=== PATIENT | female | born 1980 | race Caucasian/White ===

== ENCOUNTER 2020-06-07 14:33 | Outpatient (REF) | payer BC, SELFPAY ==
[2020-06-07 16:11] LABS: MANUAL DIFF FLAG NO
[2020-06-07 16:16] LABS: Basophils Absolute Auto 0.1 X10*3/uL (0.0-0.2); Basophils Percent Auto 0.6 % (0-2); Eosinophils Absolute Auto 0.1 X10*3/uL (0.0-0.4); Eosinophils Percent Auto 1.4 % (0-4); Hematocrit 42.6 % (37-47); Hemoglobin 13.9 g/dl (12.0-16.0); Imm Gran Abs Auto 0.02 X10*3/uL (0.00-0.03); Imm Gran Pct Auto 0.2 % (0.0-0.4); Lymphocytes Absolute Auto 2.3 X10*3/uL (1.2-4.9); Lymphocytes Percent Auto 27.5 % (20-40); Mean Corpuscular HGB Conc 32.6 g/dl (31.0-35.0); Mean Corpuscular Hemoglobin 29.1 pg (27.0-33.0); Mean Corpuscular Volume 89.1 fL (80-98); Mean Platelet Volume 9.7 fL (9.4-12.3); Monocytes Absolute Auto 0.5 X10*3/uL (0.1-1.2); Monocytes Percent Auto 5.7 % (2-11); Neutrophils Absolute Auto 5.5 X10*3/uL (2.0-8.3); Neutrophils Percent Auto 64.6 % (45-73); Platelet Count 313 X10*3/uL (160-400); Red Blood Count 4.78 X10*6/uL (4.20-5.50); Red Cell Distribution Width 12.8 % (11.0-16.0); White Blood Count 8.5 X10*3/uL (4.8-10.8)
[2020-06-07 16:39] LABS: Anion Gap 11 (12-20); Blood Urea Nitrogen 13 mg/dL (9-16); Calcium 9.1 mg/dL (8.4-10.2); Carbon Dioxide 29 mmol/L (22-29); Chloride 104 mmol/L (96-108); Estimated Glomerular Filt Rate > 60; Glucose Fasting 88 mg/dL (60-99); Potassium 4.5 mmol/L (3.3-5.1); Sodium 139 mmol/L (135-145)
[2020-06-07 17:02] LABS: TSH reflex Free T4 1.43 uIU/mL (0.32-4.0)
== END 2020-06-07 14:34 | disposition home or self-care (01) ==
LOC: HO.HMGCLDS 14:33
PROVIDERS: PCP Internal Medicine; Visit Provider Internal Medicine
DX: R00.2 Palpitations (principal); I10 Essential (primary) hypertension
CPT/HCPCS: 36415; 80048; 84443; 85025

== ENCOUNTER → 2020-07-07 13:12 | Outpatient (REF) | payer BC, SELFPAY ==
--- NOTE | 2020-07-07 13:25 | ECG_ITS ---
Hook-up date: 2020-07-07 13:29:00 Duration: 43:16:00 Test Indications: PALPITATIONS Medications: 207613 QRS complexes * Ventricular ectopics which represent % of total QRS comp. 8 Supraventricular ectopics which represent <1 % of total QRS comp. * Paced QRS complexs which represent % of total QRS comp. VENTRICULAR ECTOPY * Isolated * Bigeminal Cycles * Couplets * Runs * Beats in Runs * Beats LONGEST at * BPM at :: -- * Beats FASTEST at * BPM at :: -- SUPRAVENTRICULAR ECTOPY 6 Isolated 1 Couplets 0 Runs 0 Beats in Runs * Beats LONGEST at * BPM at :: -- * Beats FASTEST at * BPM at :: -- HEART RATES 55 MIN at 21:51:10 2020-07-07 83 AVG 140 MAX at 13:30:51 2020-07-07 LONGEST RR 1.1280 secs at 00:35:34 2020-07-08 S-T LEVELS Channel 1 - 128 mm at 13:29:00 2020-07-07 - 128 mm at 13:29:00 2020-07-07 Channel 2 - 128 mm at 13:29:00 2020-07-07 - 128 mm at 13:29:00 2020-07-07 Channel 3 - 128 mm at 03:24:81 -- - 128 mm at 03:24:81 Underlying rhythm is sinus; Average ventricular rate 83/min; range 55-140/min; Very rate premature atrial contractions; No sustained arrhythmias; 'Flutters' in patient diary without any findings on holter. Referred By: Shira Mayes Overread By: CHEVY MCKEON
== END ==
LOC: HO.CARD 13:12
PROVIDERS: Visit Provider Internal Medicine
DX: R00.2 Palpitations (principal)
CPT/HCPCS: 93225; 93226

== ENCOUNTER 2020-11-01 09:21 | Outpatient (REF) | payer BC, SELFPAY ==
[2020-11-01 11:35] LABS: Cholesterol 166 mg/dL; Glucose Fasting 90 mg/dL (60-99); HDL Cholesterol 73 mg/dL; LDL Cholesterol Calculated 80 mg/dl; Triglycerides 67 mg/dL
[2020-11-01 11:57] LABS: Thyroid Stimulating Hormone 1.08 uIU/mL (0.32-4.0); Vitamin D 25-OH Total 37.3 ng/mL (>30)
[2020-11-03 09:41] LABS: Thyroid Peroxidase Antibodies 1 IU/mL (<9)
== END 2020-11-01 09:22 | disposition home or self-care (01) ==
LOC: HO.HMGCLDS 09:21
PROVIDERS: PCP Internal Medicine; Visit Provider Internal Medicine
DX: Z00.00 Encounter for general adult medical examination without abnormal findings (principal); N92.6 Irregular menstruation, unspecified
CPT/HCPCS: 36415; 80061; 82306; 82947; 84443; 86376

== ENCOUNTER 2021-01-12 09:01 | Outpatient (REF) | payer BC, SELFPAY ==
--- NOTE | ~2021-01-12 | MM_ITS ---
EXAMINATION: MM SCREENING DIGITAL BREAST TOMOSYNTHESIS, BILATERAL CLINICAL INFORMATION: Screening. Asymptomatic. Status post bilateral subpectoral saline breast implants. The lifetime risk of breast cancer based on the Tyrer-Cuzick Model is 7.7%. COMPARISON: Mammography: None TECHNIQUE: Digital mammography is performed in craniocaudal and mediolateral oblique views along with computer-aided detection (CAD). Digital breast tomosynthesis is performed in implant-displaced craniocaudal and implant-displaced mediolateral oblique views along with computer-aided detection (CAD). Synthesized 2D images are generated from the tomosynthesis. Trent implant displaced views performed. FINDINGS: There are scattered areas of fibroglandular density (ACR BI-RADS breast composition Category b). There are no significant masses, abnormal calcifications, or other abnormalities. MM/MM tomosynthesis screen imp BI IMPRESSION: No specific mammographic evidence to suggest malignancy. ASSESSMENT: BI-RADS 1: Negative RECOMMENDATION: Routine annual mammography screening. This patient's information was entered into a reminder system with a target due date for their next mammogram.
== END 2021-01-12 09:02 | disposition home or self-care (01) ==
LOC: HO.MAMMO 09:01
PROVIDERS: Visit Provider Internal Medicine
DX: Z12.31 Encounter for screening mammogram for malignant neoplasm of breast (principal)
CPT/HCPCS: 77063; 77067

== ENCOUNTER 2021-04-29 08:54 | Outpatient (REF) | payer OTHER, BC, SELFPAY ==
[2021-04-29 10:22] LABS: Binax Internal Control QC Valid; Binax Now Covid-19 Ag Negative (Negative)
== END 2021-04-29 08:55 | disposition home or self-care (01) ==
LOC: HO.LAB 08:54
PROVIDERS: Visit Provider Internal Medicine
DX: Z20.822 Contact with and (suspected) exposure to COVID-19 (principal)
CPT/HCPCS: 36415; C9803

== ENCOUNTER 2021-08-08 08:10 | Outpatient (REF) | payer OTHER, SELFPAY ==
[2021-08-08 11:18] LABS: MANUAL DIFF FLAG NO
[2021-08-08 11:23] LABS: Basophils Percent Auto 0.9 % (0-2); Eosinophils Absolute Auto 0.2 X10*3/uL (0.0-0.4); Eosinophils Percent Auto 5.3 % (0-4); Hematocrit 41.1 % (37.0-47.0); Imm Gran Abs Auto 0.01 X10*3/uL (0.00-0.03); Imm Gran Pct Auto 0.2 % (0.0-0.4); Lymphocytes Absolute Auto 1.3 X10*3/uL (1.2-4.9); Lymphocytes Percent Auto 29.4 % (20-40); Mean Corpuscular HGB Conc 31.6 g/dl (31.0-35.0); Mean Corpuscular Hemoglobin 28.6 pg (27.0-33.0); Mean Corpuscular Volume 90.5 fL (80.0-98.0); Mean Platelet Volume 10.5 fL (9.4-12.3); Monocytes Absolute Auto 0.4 X10*3/uL (0.1-1.2); Monocytes Percent Auto 8.7 % (2-11); Neutrophils Absolute Auto 2.4 x10*3/uL (2.0-8.3); Neutrophils Percent Auto 55.5 % (45-73); Platelet Count 308 X10*3/uL (160-400); Red Blood Count 4.54 X10*6/uL (4.20-5.50); Red Cell Distribution Width 12.8 % (11.0-16.0); White Blood Count 4.4 X10*3/uL (4.8-10.8)
[2021-08-08 11:57] LABS: Estimated Average Glucose 100 mg/dL; Hemoglobin A1c % 5.1 %
[2021-08-08 11:58] LABS: Alanine Aminotransferase 14 U/L (0-31); Alkaline Phosphatase 44 U/L (39-117); Anion Gap 10 (12-20); Aspartate Amino Transferase 18 U/L (5-31); Bilirubin Total 0.6 mg/dL (0.0-1.0); Blood Urea Nitrogen 13 mg/dL (9-16); Calcium 9.1 mg/dL (8.4-10.2); Carbon Dioxide 27 mmol/L (22-29); Chloride 106 mmol/L (96-108); Estimated Glomerular Filt Rate > 60; Glucose Fasting 95 mg/dL (60-99); Potassium 4.1 mmol/L (3.3-5.1); Sodium 139 mmol/L (135-145); Total Protein 6.4 g/dL (6.5-8.0)
[2021-08-08 12:00] LABS: Free T4 (Free Thyroxine) 1.05 ng/dL (0.71-1.85); TSH reflex Free T4 1.49 uIU/mL (0.32-4.0)
[2021-08-09 23:46] LABS: DHEA Sulfate 119 mcg/dL (15-205)
[2021-08-13 15:05] LABS: Progesterone 0.1 ng/mL
[2021-08-13 22:52] LABS: Estradiol Free 0.58 pg/mL; Estradiol, Ultrasensitive 38 pg/mL
[2021-08-14 03:02] LABS: Testosterone, Free 2.9 pg/mL (0.1-6.4); Testosterone, Total 29 ng/dL (2-45)
[2021-08-19 18:46] LABS: Cortisol, Free 0.52 mcg/dL
== END 2021-08-08 08:11 | disposition home or self-care (01) ==
LOC: HO.WFDLDS 08:10
PROVIDERS: Visit Provider Internal Medicine
DX: E03.9 Hypothyroidism, unspecified (principal); E66.9 Obesity, unspecified; N96 Recurrent pregnancy loss
CPT/HCPCS: 36415; 80053; 82530; 82627; 82670; 82681; 83036; 84144; 84402; 84403; 84439; 84443; 85025

== ENCOUNTER → 2021-08-16 08:45 | Outpatient (BNVA) | payer OTHER, SELFPAY | PROVIDERS: PCP Internal Medicine; Visit Provider Nurse Practitioner Family | DX: G47.19 Other hypersomnia (principal); R06.83 Snoring | CPT/HCPCS: 99202 ==

== ENCOUNTER 2021-08-18 14:37 | Outpatient (REF) | payer OTHER, SELFPAY ==
[2021-08-20 14:45] LABS: HPV mRNA E6/E7 rflx Not Detected (Not Detected)
== END 2021-08-18 14:38 | disposition home or self-care (01) ==
LOC: HO.LAB 14:37
PROVIDERS: PCP Internal Medicine; Visit Provider Advanced Practice Midwife
DX: Z01.411 Encounter for gynecological examination (general) (routine) with abnormal findings (principal); Z11.51 Encounter for screening for human papillomavirus (HPV); N92.6 Irregular menstruation, unspecified
CPT/HCPCS: 87624; 88142

== ENCOUNTER → 2021-12-05 13:22 | Outpatient (BNVA) | payer OTHER, SELFPAY | PROVIDERS: PCP Internal Medicine; Visit Provider Dietitian, Registered | DX: E66.9 Obesity, unspecified (principal); Z71.3 Dietary counseling and surveillance | CPT/HCPCS: 97802 ==

== ENCOUNTER 2022-02-14 09:13 | Outpatient (REF) | payer OTHER, SELFPAY ==
[2022-02-14 12:08] LABS: Influenza A PCR NEGATIVE (Negative); Influenza B PCR NEGATIVE (Negative); Resp Syncy Virus RNA Qual PCR NEGATIVE (Negative); SARS COV2 PCR INHOUSE NEGATIVE (Negative)
== END 2022-02-14 09:14 | disposition home or self-care (01) ==
LOC: HO.LAB 09:13
PROVIDERS: Visit Provider Hospitalist
DX: Z20.822 Contact with and (suspected) exposure to COVID-19 (principal); R05.9 Cough, unspecified
CPT/HCPCS: 0241U

== ENCOUNTER 2023-03-26 08:04 | Outpatient (REF) | payer OTHER, SELFPAY ==
--- NOTE | ~2023-03-26 | MM_ITS ---
EXAMINATION: MM SCREENING DIGITAL BREAST TOMOSYNTHESIS, BILATERAL CLINICAL INFORMATION: Screening. Asymptomatic. COMPARISON: Mammography: This study is compared with the prior mammogram from 2020. There are no other mammograms for comparison. TECHNIQUE: Digital mammography is performed in craniocaudal and mediolateral oblique views along with computer-aided detection (CAD). Digital breast tomosynthesis is performed in implant-displaced craniocaudal and implant-displaced mediolateral oblique views along with computer-aided detection (CAD). Synthesized 2D images are generated from the tomosynthesis. FINDINGS: The breasts are heterogeneously dense, which may obscure small masses (ACR BI-RADS breast composition Category c). There are bilateral, mammographically intact saline breast implants. There are no significant masses, abnormal calcifications, or other abnormalities. MM/MM tomosynthesis screen imp BI IMPRESSION: There are no significant changes from prior study. ASSESSMENT: BI-RADS BI-RADS 1 - Negative RECOMMENDATION: Routine annual mammography screening. 1 year F/U This patient's information was entered into a reminder system with a target due date for their next mammogram.
== END 2023-03-26 08:05 | disposition home or self-care (01) ==
LOC: HO.MAMMO 08:04
PROVIDERS: PCP Internal Medicine; Visit Provider Internal Medicine
DX: Z12.31 Encounter for screening mammogram for malignant neoplasm of breast (principal)
CPT/HCPCS: 77063; 77067

== ENCOUNTER → 2023-03-26 08:15 | Outpatient (BNV) | payer OTHER, SELFPAY | PROVIDERS: PCP Internal Medicine; Visit Provider Radiology Diagnostic Radiology | DX: Z12.31 Encounter for screening mammogram for malignant neoplasm of breast (principal) | CPT/HCPCS: 77063; 77067 ==

== ENCOUNTER 2023-04-11 08:23 | Outpatient (AMB) | payer OTHER, SELFPAY ==
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
[2023-04-11 08:33] VITALS: BP 124/76; PULSE 80; RESP 13; TEMP 36.4; O2SAT 99; BMI 26.2
== END 2023-04-11 09:08 | disposition home or self-care (01) ==
PROVIDERS: PCP Internal Medicine; Visit Provider Nurse Practitioner Family
DX: Z00.00 Encounter for general adult medical examination without abnormal findings (principal); M25.561 Pain in right knee; M25.562 Pain in left knee; G89.29 Other chronic pain; J06.9 Acute upper respiratory infection, unspecified
CPT/HCPCS: 99396

== ENCOUNTER 2023-08-14 08:17 | Outpatient (REF) | payer OTHER, SELFPAY ==
[2023-08-14 14:20] LABS: CT PCR NOT DETECTED (Not Detect.); NG PCR NOT DETECTED (Not Detect.)
[2023-08-15 13:25] LABS: BV Int Neg Control Negative (Negative); BV Int Pos Control Positive (Positive)
== END 2023-08-14 08:18 | disposition home or self-care (01) ==
LOC: HO.LAB 08:17
PROVIDERS: PCP Nurse Practitioner Family; Visit Provider Advanced Practice Midwife
DX: Z20.2 Contact with and (suspected) exposure to infections with a predominantly sexual mode of transmission (principal)
CPT/HCPCS: 0353U; 87480; 87510; 87660

== ENCOUNTER 2023-08-14 08:17 | Outpatient (AMB) | payer OTHER, SELFPAY ==
--- NOTE | 2023-08-14 08:18 | MHC.OFFVIS ---
Vital Signs 08/14/23 08:20 Height 5 ft 2 in Weight 154 lb BMI 28.2 BP 106/66 Intake Visit Reasons: Annual/ control consult Intake Note: wants to discuss BC options Type Disk Quality Control Supervisor: Type Disk Quality Control Supervisor Present (Trena) Allergies No Known Allergies Allergy (Verified 08/14/23 08:20) Is last menstrual period known: Yes Last menstrual period: 08/06/23 HPI Comments Details: She is a premenopausal woman presenting for annual examination. Doing well with no concerns. She tries to eat healthy and stays active with exercise. Regular monthly menses, q 27d. Currently is sexually active, new partner interested in control, had the Mirena IUD in the past. She denies vaginal itching and irritation. STI screening offered; she accepts, declines bloodwork as it is done at work yearly. Denies family history of breast or ovarian. FH colon cancer. Last pap smear 2021, negative. Mammogram: 2022, BI-RADS 1. [facility] Medical History Obesity History of recurrent miscarriages Excessive daytime sleepiness Irregular menses Intermittent palpitations Surgical History History of surgery Family History Mother Medical history non-contributory Father HTN (hypertension) Maternal Grandfather Colon cancer Daughter No problems noted. Daughter No problems noted. 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 Cognitive needs: No Hearing needs: No Vision needs: No Female Reproductive History Menstrual Age of Menarche: 15 Date of last menstrual period: 08/06/23 control method: condoms Total pregnancies: 5 Full term: 2 Number of Living Children: 2 Date of last pap smear: 08/18/21 (neg pap and hpv) Date of Mammogram: 03/26/23 (Birad 1) Review of Systems Const All systems reviewed & are unremarkable except as noted in HPI and below Reports as per HPI Eyes Reports no additional complaints ENT Reports no additional complaints Card Reports no additional complaints Resp Reports no additional complaints GI Reports as per HPI and Reports no additional complaints Reports as per HPI Musc Reports no additional complaints Skin/Breast Reports as per HPI Neuro Reports no additional complaints Psych Reports no additional complaints Endo Reports no additional complaints Cedric/Lymph Reports no additional complaints Aller/Immun Reports no additional complaints Physical Exam Vital Signs: Last Vital Signs BP 106/66 08/14/23 08:20 BMI result Body Mass Index 28.2 Const General: cooperative, healthy appearing, no acute distress, well developed and alert Orientation/consciousness: patient oriented x3 HEENT Head: Yes normal to inspection Eyes General: appearance normal, both eyes and all related structures Neck Neck: Yes normal visual inspection Thyroid: Thyroid normal Chest Chest palpation & inspection: normal inspection of the chest and other (no puckering, dimpling, peau de orange, retraction, discharge, masses) Breast/axilla inspection: normal inspection of the breasts Breast/axilla palpation: normal palpation of the breasts Resp Effort & Inspection: normal respiratory effort GI Inspection: Yes normal to inspection Palpation (GI): Soft to palpation Rectal Exam - Female: deferred General: Yes bladder normal to palpation External Female Exam: normal external appearance and normal appearance of the urethra Speculum Exam - Vagina: normal appearance of the vagina, normal palpation and normal vaginal discharge Speculum Exam - Cervix: normal appearance of the cervix and normal palpation Bimanual exam- vagina & uterus: normal bimanual exam, normal palpation, uterine size normal, bladder normal to palpation, normal palpation and non-tender Bimanual Exam- Adnexa, other: no masses Skin General skin exam: no rashes or lesions noted Rashes: no rashes Neuro General: patient oriented x3 Cognition (Neuro): normal cognition Extrem General: Yes normal to inspection Psych Attitude: cooperative Thought process: Normal thought process present Assessment & Plan Assessment & Plan (1) Encounter for well woman exam with routine gynecological exam: Code(s): Z01.419 - Encounter for gynecological examination (general) (routine) without abnormal findings Plan Discussed: Current recommendations for pap smears per ASCCP guidelines. Breast awareness and periodic breast exams. control options, plans Mirena IUD with next menses. Advised to take Motrin 600 mg with food 1 hour before her insertion time. Maintain a healthy lifestyle including a well balanced diet and routine exercise. Use condoms for STI and prevention. Mammogram yearly. Colonoscopy >45, or at risk sooner. Patient verbalizes understanding and agrees to the plan of care. She was given opportunity to ask questions and all questions were answered to the best of my ability. RTO in one year for annual third mate examination. This note is constructed using voice recognition software. While every effort has been made to ensure accuracy, signal integrity engineer errors may have been included. Orders: Orders Bacterial Vaginosis Panel Today Z20.2 - Contact with and (suspected) exposure to infections with a predominantly sexual mode of transmission CT NG by PCR Today Z20.2 - Contact with and (suspected) exposure to infections with a predominantly sexual mode of transmission
[2023-08-14 08:20] VITALS: BP 106/66; BMI 28.2
== END 2023-08-14 09:56 | disposition home or self-care (01) ==
PROVIDERS: PCP Nurse Practitioner Family; Visit Provider Advanced Practice Midwife
DX: Z01.419 Encounter for gynecological examination (general) (routine) without abnormal findings (principal)
CPT/HCPCS: 99396

== ENCOUNTER 2023-08-14 08:37 | Outpatient (REF) | payer OTHER, SELFPAY | END 2023-08-14 08:38 | disposition home or self-care (01) | LOC: HO.LNP 08:37 | PROVIDERS: Visit Provider Advanced Practice Midwife | DX: Z13.89 Encounter for screening for other disorder (principal) ==

== ENCOUNTER 2023-10-02 08:12 | Outpatient (AMB) | payer OTHER, SELFPAY ==
[2023-10-02 08:22] VITALS: BP 112/80; BMI 27.4
--- NOTE | 2023-10-02 08:22 | MHC.OFFVIS ---
Vital Signs 10/02/23 08:22 Height 5 ft 2 in Weight 150 lb BMI 27.4 BP 112/80 Intake Visit Reasons: Mirena IUD insertion Industrial X Ray Operator Required: No Information Interpreted: non-clinical & clinical Mobile Home Mechanic: Mobile Home Mechanic Present (Enrique) Allergies No Known Allergies Allergy (Verified 10/02/23 08:41) Post menopausal: No Patient : No HPI Comments Details: Patient is here for Mirena IUD insertion. She denies any risk to . [facility] Medical History Obesity History of recurrent miscarriages Excessive daytime sleepiness Irregular menses Intermittent palpitations Surgical History History of surgery Family History Mother Medical history non-contributory Father HTN (hypertension) Maternal Grandfather Colon cancer Daughter No problems noted. Daughter No problems noted. 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 Cognitive needs: No Hearing needs: No Vision needs: No Female Reproductive History Menstrual Age of Menarche: 15 control method: none and progestin IUCD (Mirena inserted 10/02/2023) Date of last pap smear: 08/19/21 (negative) Review of Systems Const All systems reviewed & are unremarkable except as noted in HPI and below Physical Exam Vital Signs: Last Vital Signs BP 112/80 10/02/23 08:22 BMI result Body Mass Index 27.4 Const General: cooperative, healthy appearing and no acute distress Orientation/consciousness: patient oriented x3 GI Inspection: Yes normal to inspection Palpation (GI): Soft to palpation and Other GI palpation findings present (Nontender) Rectal Exam - Female: visual inspection normal General: Yes bladder normal to palpation External Female Exam: normal appearance of the urethra Speculum Exam - Vagina: normal appearance of the vagina, normal palpation and normal vaginal discharge Speculum Exam - Cervix: normal appearance of the cervix and normal palpation Bimanual exam- vagina & uterus: normal bimanual exam, normal palpation, uterine size normal, bladder normal to palpation, normal palpation, uterine shape normal and non-tender Bimanual Exam- Adnexa, other: normal adnexae Neuro General: patient oriented x3 Office Procedures IUD Insert/Removal Details 85400-ATT Insertion Procedure code (CPT) selection complete Contraception Insert/Removal Details Details: The patient is here today for a Mirena IUD insertion. She was counseled on the side effects including: menstrual cycle changes, pain, infection, bleeding, or expulsion. Risks of injury to the vagina, cervix, uterus, tubes, ovaries, bowel, bladder, and any adjacent tissue, resulting in nerve damage, scarring, and pain. Risks complications for the procedure that may require other test including ultrasounds, Xray, CT or MRI scan, surgery, anesthesia, blood transfusion. A urine test was completed and was negative. She was consented for the IUD insertion and has signed the consent form. All questions were answered. IUD Insertion: The patient was placed in the dorsal lithotomy position and a sterile speculum was inserted. The procedure was completed under aseptic technique. The cervix was cleansed with a Betadine solution x 3 swabs. A single toothed tenaculum was applied to the cervix for stabilization, and the uterus was sounded to 8 cm. The device was inserted and released with a gentle motion. Bleeding from the tenaculum sites and the procedure were minimal. The strings were trimmed to 3cm. All of the equipment was removed and the bimanual was normal, no tip was palpable at the cervical os. The patient tolerated the procedure well and left the office in good condition. Post IUD Insertion Care: There may be some post insertion bleeding for several days that is usually light and can turn to a light brown or pink in color. Mild cramping may occur. Nothing in the vagina including: tampons, douching or intimacy for several days. You may take an over the counter mild analgesia like Tylenol or Advil (if no allergies), per the manufacturers recommendations on dosing and frequency. Follow the directions completely. Call the office if any: fever (over 100.4), flu like symptoms, abdominal pain, worsening cramping not resolved with over the counter medications, foul smelling vaginal odor, signs of infected appearing discharge, or heavy bleeding. Use a condom for a back up method if indicated for 7 days. Always use a condom for STI prevention; IUD's are not protective against STD's. Return to the office in 4-6 weeks for IUD recheck. This note is constructed using voice recognition software. While every effort has been made to ensure accuracy, braze operator errors may have been included. 13170 - Insertion Office Meds Mirena 21 mcg/24 hours (8 yrs) 52 mg intrauterine device Performing Provider: Yvonne Antunez CNM Performing Location: [facility] Administered by: CAROL Smyth on 10/02/23 08:59 Dose Route Admin Location Dispensed Lot Number Expiration Date [facility] Crude Unit Operator [address] [facility]-OBGYN 1 device [id number] 12/20/25 [id number] [place] [facility] Results AMB Test Urine AMB Test Urine Negative Last Edit by CAROL Smyth on 10/02/23 08:43 Results Reviewed Results Reviewed: Laboratory Last Values [facility] Negative 10/02/23 08:43 Assessment & Plan Assessment & Plan (1) Encounter for insertion of mirena IUD: Code(s): Z30.430 - Encounter for insertion of intrauterine contraceptive device Category: Medical Plan See procedure note. Orders: Orders AMB IUD Insertion/Removal - Practice Supplied Today Z30.430 - Encounter for insertion of intrauterine contraceptive device AMB HCG Urine Test Today Z32.02 - Encounter for test, result negative Coding Level of Care Code Procedure Only Diagnoses Encounter for insertion of mirena IUD Z30.430 CPT Codes Details - CPT: 77169-KZX Insertion ([id number]) Details - Contraception: 28537 - Insertion ([id number])
== END 2023-10-02 09:04 | disposition home or self-care (01) ==
PROVIDERS: PCP Nurse Practitioner Family; Visit Provider Advanced Practice Midwife
DX: Z30.430 Encounter for insertion of intrauterine contraceptive device (principal); Z32.02 Encounter for pregnancy test, result negative
CPT/HCPCS: 58300

== ENCOUNTER → 2023-10-02 08:12 | Outpatient (BNVA) | payer OTHER, SELFPAY | PROVIDERS: PCP Nurse Practitioner Family; Visit Provider Advanced Practice Midwife | DX: Z30.430 Encounter for insertion of intrauterine contraceptive device (principal); Z32.02 Encounter for pregnancy test, result negative | CPT/HCPCS: 58300; 81025; J7298 ==

== ENCOUNTER 2023-11-13 11:20 | Outpatient (AMB) | payer OTHER, SELFPAY ==
--- NOTE | 2023-11-13 11:20 | MHC.OFFVIS ---
Vital Signs 11/13/23 11:21 Height 5 ft 2 in Weight 150 lb BMI 27.4 BP 110/74 Intake Visit Reasons: 4-6 IUD check Steward/Stewardess Tourist Class: Steward/Stewardess Tourist Class Present (Trena) Allergies No Known Allergies Allergy (Verified 11/13/23 11:21) Is last menstrual period known: Yes Last menstrual period: 10/22/23 HPI Comments Details: Patient is here today for a follow up status post IUD insertion check. She reports her last menstrual period was a bit earlier than usual and she has noticed facial acne breakout. [facility] Medical History Obesity History of recurrent miscarriages Excessive daytime sleepiness Irregular menses Intermittent palpitations Surgical History History of surgery Family History Mother Medical history non-contributory Father HTN (hypertension) Maternal Grandfather Colon cancer Daughter No problems noted. Daughter No problems noted. 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 Cognitive needs: No Hearing needs: No Vision needs: No Female Reproductive History Menstrual Age of Menarche: 15 Date of last menstrual period: 10/22/23 control method: progestin IUCD (Mirena 10/02/23) Review of Systems Const All systems reviewed & are unremarkable except as noted in HPI and below Physical Exam Vital Signs: Last Vital Signs BP 110/74 11/13/23 11:21 BMI result Body Mass Index 27.4 Const General: cooperative, healthy appearing and no acute distress Orientation/consciousness: patient oriented x3 GI Inspection: Yes normal to inspection Palpation (GI): Soft to palpation and Other GI palpation findings present (Nontender) Rectal Exam - Female: visual inspection normal General: Yes bladder normal to palpation External Female Exam: normal appearance of the urethra Speculum Exam - Vagina: normal appearance of the vagina, normal palpation and normal vaginal discharge Speculum Exam - Cervix: normal appearance of the cervix, normal palpation and Other cervical findings present (IUD strings at the os) Bimanual exam- vagina & uterus: normal bimanual exam, normal palpation, uterine size normal, bladder normal to palpation, normal palpation, uterine shape normal and non-tender Bimanual Exam- Adnexa, other: normal adnexae Neuro General: patient oriented x3 Assessment & Plan Assessment & Plan (1) IUD surveillance: Code(s): Z30.431 - Encounter for routine checking of intrauterine contraceptive device Plan Discussed: Monitoring menstrual cycles, normal transition after IUD insertion may expect random bleeding. Call if there is any heavy prolonged bleeding, pelvic pain or other concerns. Has a director women annual scheduled for July of 2024. All of her questions and concerns were addressed to the best of my ability and shared decision making. She is agreeable to the plan of care. This note is constructed using voice recognition software. While every effort has been made to ensure accuracy, ware cleaner errors may have been included. Coding Level of Care Code Est Pt Level 2 (96143) Diagnoses IUD surveillance Z30.431
[2023-11-13 11:21] VITALS: BP 110/74; BMI 27.4
== END 2023-11-13 12:04 | disposition home or self-care (01) ==
PROVIDERS: PCP Nurse Practitioner Family; Visit Provider Advanced Practice Midwife
DX: Z30.431 Encounter for routine checking of intrauterine contraceptive device (principal)
CPT/HCPCS: 99212

== ENCOUNTER → 2023-11-13 11:20 | Outpatient (BNVA) | payer OTHER, SELFPAY | PROVIDERS: PCP Nurse Practitioner Family; Visit Provider Advanced Practice Midwife | DX: Z30.431 Encounter for routine checking of intrauterine contraceptive device (principal) | CPT/HCPCS: 99212 ==

== ENCOUNTER 2024-02-12 08:04 | Outpatient (AMB) | payer OTHER, SELFPAY ==
--- NOTE | 2024-02-12 08:18 | AM.OFFWIN_ITS ---
Intake Vital Signs 02/12/24 08:21 Height 5 ft 2 in Weight 135 lb 2 oz BMI 24.7 BP 102/66 Blood Pressure Location Lt brachial Position Sitting Respiration 13 Pulse 71 Pulse Source Pulse Oximeter Pulse Oximetry (%) 100 Oxygen Delivery Method Room Air Intake Visit Reasons: Left ear is blocked Intake Note: Patient complaining of not hearing from her left ear x 1 week Patient Tobacco Use Status: Never used Tobacco Allergies No Known Allergies Allergy (Verified 02/12/24 08:36) Medication List - Last Reconciled 02/12/24 by Meggan Trotter, CORE DRILLER- multivitamin 1 tab PO DAILY Do you need a note to return to daycare/school/sports/work: No HPI HPI Comments History of Present Illness Details 43-year-old female here today with compl aints of plugged sensation in the left ear. Reports that she was sick with a URI a few weeks ago. These symptoms resolved however she initially felt some plugging of bilat ears, her right ear symptoms would come and go. Overall the right ear symptoms are resolved however she continues with the left ear feeling blocked, reports that she has pain in the area when she bends over, mild nasal congestion, everything sounds echoed. She is taking daily Zyrtec and Flonase. She has also tried self insufflation which seems to make the right ear feel plugged and not help at all with the left ear Exam: Awake alert NAD Sclera and conjunctiva clear bilat Nares patent, turbinates pale and edematous on the left, left maxillary sinus tenderness with palpation TM intact clear on the right, intact, bulging, erythematous on the left MMM, pharynx WNL Plan Treat for acute bacterial sinusitis with Augmentin. Advised to take with food. Continue Flonase. Continue allergy medication. Advised that the sensation in the left ear can continue for a few weeks however her symptoms should greatly improved status post antibiotics. Educated on reasons to return to the office and or seek additional care This note is constructed using voice recognition software. While every effort has been made to ensure accuracy in technology architect, still errors may have been included Sometimes, these errors may affect the content or meaning of the given sentence . [facility] Medical History Obesity History of recurrent miscarriages Excessive daytime sleepiness Irregular menses Intermittent palpitations Surgical History History of surgery Family History Mother Medical history non-contributory Father HTN (hypertension) Maternal Grandfather Colon cancer Daughter No problems noted. Daughter No problems noted. 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 (2) Dysfunction of left eustachian tube: Code(s): H69.92 - Unspecified Eustachian tube disorder, left ear Plan: . Medications: New amoxicillin-pot clavulanate 875-125 mg 1 tab PO BID 7 days 14 tabs 0RF fluticasone propionate 50 mcg/actuation administer into each nostril 1 spray intranasal BID PRN 16 grams 11RF allergy symptoms Patient Instructions: What Is It? Sinuses are air-filled spaces behind the bones of the upper face: between the eyes and behind the forehead, nose and cheeks. The lining of the sinuses are made up of cells with tiny hairs on their surfaces called cilia. Other cells in the lining produce mucus. The mucus traps germs and pollutants and the cilia push the mucus out through narrow sinus openings into the nose. When the sinuses become inflamed or infected, the mucus thickens and clogs the openings to one or more sinuses. Fluid builds up inside the sinuses causing increased pressure. Also bacteria can become trapped, multiply and infect the lining. This is sinusitis. Prevention There are some measures you can take to decrease your risk of developing sinusitis. If you smoke cigarettes, you should quit. The smoke can irritate nasal passageways and increase the likelihood of infection. Nasal allergies can trigger sinus infections, too. By identifying the allergen (the substance causing the allergic reaction) and avoiding it, you can help prevent sinusitis. If you have congestion from a cold or allergies, the following may help to reduce the risk of developing sinusitis: Drink lots of water. This thins nasal secretions and keeps mucous membranes moist. Use steam to soothe nasal passages. Breathe deeply while standing in a hot shower, or inhale the vapor from a basin filled with hot water while holding a towel over your head. Avoid blowing your nose with great force, which can push bacteria into the sinuses. Some doctors advise periodic home nasal washings to clear secretions. This may help prevent, and also treat, sinus infections. Treatment Many sinus infections improve without treatment. However, several medications may speed recovery and reduce the chance that an infection will become chronic. Decongestants - Congestion often triggers sinus infections, and decongestants can open the sinuses and allow them to drain. Several are available: Pseudoephedrine (Sudafed) is available without prescription, alone or in combination with other medications in multi-symptom cold and sinus remedies. Pseudoephedrine can cause insomnia, racing pulse and jitteriness. Do not use if you have high blood pressure or a heart condition. Phenylephrine (such as Sudafed PE) is an alternative oqxu-cet-glyclij oral decongestant. If you take products containing oral phenylephrine, check with the pharmacist to be certain there is no interaction with other medications you take. Oxymetazoline (AfHannah abarca and others) and phenylephrine (Jose Antonio-Synephrine and others) are found in nasal sprays. They are effective and may be less likely to cause the side effects seen with pseudoephedrine. However, using a nasal decongestant for more than three days can cause worse symptoms when you stop the medication. This is called the rebound effect. Antihistamines - These medications help to relieve the symptoms of nasal allergies that lead to inflammation and infections. However, some doctors advise against using antihistamines during a sinus infection because they can cause excessive drying and slow the drainage process. Xkya-ldi-cgvyncp antihistamines include diphenhydramine (Benadryl and others), chlorpheniramine (Chlor-Trimeton and others) and loratadine (Claritin). Fexofenadine (Erin) and cetrizine (Zyrtec) are available by prescription. Nasal steroids - Anti-inflammatory sprays such as mometasone (Nasonex) and fluticasone (Flonase), both available by prescription, reduce swelling of nasal membranes. Like antihistamines, nasal steroids can be most useful for those who have nasal allergies. Nasal steroids tend to produce less drying than antihistamines. Unlike nasal decongestants, nasal steroids can be used for prolonged periods. Saline nasal sprays - These salt-water sprays are safe to use and can provide some relief by adding moisture to the nasal passages, thinning mucus secretions and helping to flush out any bacteria that may be present. Pain relievers - Acetaminophen (Tylenol), ibuprofen (Advil, Motrin and others) or naproxen (Aleve) can be taken sinus pain. Antibiotics - Your doctor may prescribe an antibiotic if he or she suspects that a bacterial infection is causing your sinusitis. If you start taking an antibiotic, complete the entire course so that the infection is completely killed off. Not all cases of sinusitis require antibiotic treatment: Talk with your doctor about whether an antibiotic is right for you. Keep in mind that antibiotics can cause side effects, such as allergic reactions, rash and diarrhea. In addition, overusing antibiotics eventually leads to the spread of bacteria that no longer can be killed by the most commonly prescribed antibiotics. When To Call A Professional Contact a doctor if you experience facial pain along with a headache and fever, cold symptoms that last longer than seven to 10 days, or persistent green discharge from the nose. If your symptoms don't improve within a week of beginning treatment, call your doctor. Call sooner if symptoms are getting worse. If you have repeated bouts of acute sinusitis, you may have allergies or another treatable cause of sinus congestion. Ask your doctor for advice. Coding Level of Care Code Est Pt Level 3 (33177) Diagnoses Acute bacterial sinusitis J01.90; B96.89 Dysfunction of left eustachian tube H69.92
[2024-02-12 08:21] VITALS: BP 102/66; PULSE 71; RESP 13; O2SAT 100; BMI 24.7
== END 2024-02-12 09:56 | disposition home or self-care (01) ==
PROVIDERS: PCP Nurse Practitioner Family; Visit Provider Nurse Practitioner Family
DX: J01.90 Acute sinusitis, unspecified (principal); B96.89 Other specified bacterial agents as the cause of diseases classified elsewhere; H69.92 Unspecified Eustachian tube disorder, left ear

== ENCOUNTER → 2024-02-12 08:04 | Outpatient (BNVA) | payer OTHER, SELFPAY | PROVIDERS: PCP Nurse Practitioner Family; Visit Provider Nurse Practitioner Family | DX: J01.90 Acute sinusitis, unspecified (principal); B96.89 Other specified bacterial agents as the cause of diseases classified elsewhere; H69.92 Unspecified Eustachian tube disorder, left ear | CPT/HCPCS: 99212 ==

== ENCOUNTER 2024-08-19 08:50 | Outpatient (AMB) | payer OTHER, SELFPAY ==
[2024-08-19 08:51] VITALS: BP 116/74; BMI 27.4
--- NOTE | 2024-08-19 08:51 | A.OFFVIS_ITS ---
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 Currently is sexually active. She denies vaginal itching and irritation. STI screening offered; she declined. She tries to eat healthy and stays active with exercise. Denies family history of breast, ovarian cancer. Family history colon cancer. Last pap smear 2021, negative. Mammogram: 2022. [facility] Medical History IUD surveillance IUD (intrauterine device) in place Obesity History of recurrent miscarriages Excessive daytime sleepiness Irregular menses Intermittent palpitations Surgical History History of surgery Family History Mother Medical history non-contributory Father HTN (hypertension) Maternal Grandfather Colon cancer Daughter No problems noted. Daughter No problems noted. 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 Cognitive needs: No Hearing needs: No Vision needs: No Female Reproductive History Menstrual Age of Menarche: 15 Date of last menstrual period: 08/19/24 control method: progestin IUCD (Mirena 10/02/23) Total pregnancies: 5 Full term: 2 Number of Living Children: 2 Date of last pap smear: 08/18/21 (neg pap and hpv) Date of Mammogram: 03/26/23 (Birad 1) Review of Systems Const All systems reviewed & are unremarkable except as noted in HPI and below Reports as per HPI Eyes Reports no additional complaints ENT Reports no additional complaints Card Reports no additional complaints Resp Reports no additional complaints GI Reports as per HPI and Reports no additional complaints Reports as per HPI Musc Reports no additional complaints Skin/Breast Reports as per HPI Neuro Reports no additional complaints Psych Reports no additional complaints Endo Reports no additional complaints Cedric/Lymph Reports no additional complaints Aller/Immun Reports no additional complaints Physical Exam Vital Signs: Last Vital Signs BP 116/74 08/19/24 08:51 BMI result Body Mass Index 27.4 Const General: cooperative, healthy appearing, no acute distress, well developed and alert Orientation/consciousness: patient oriented x3 HEENT Head: Yes normal to inspection Eyes General: appearance normal, both eyes and all related structures Neck Neck: Yes normal visual inspection Thyroid: Thyroid normal Chest Other: Breast reconstruction scarring Chest palpation & inspection: normal inspection of the chest and other (no puckering, dimpling, peau de orange, retraction, discharge, masses) Breast/axilla inspection: normal inspection of the breasts Breast/axilla palpation: normal palpation of the breasts Resp Effort & Inspection: normal respiratory effort GI Inspection: Yes normal to inspection and Yes scar Palpation (GI): Soft to palpation Rectal Exam - Female: deferred General: Yes bladder normal to palpation External Female Exam: normal external appearance and normal appearance of the urethra Speculum Exam - Vagina: normal appearance of the vagina, normal palpation, normal vaginal discharge and vaginal bleeding Speculum Exam - Cervix: normal appearance of the cervix and normal palpation Bimanual exam- vagina & uterus: normal bimanual exam, normal palpation, uterine size normal, bladder normal to palpation, normal palpation, non-tender (Firm) and other (IUD strings at the os) Bimanual Exam- Adnexa, other: no masses OB/external & speculum: vaginal bleeding Skin General skin exam: no rashes or lesions noted Rashes: no rashes Neuro General: patient oriented x3 Cognition (Neuro): normal cognition Extrem General: Yes normal to inspection Psych Attitude: cooperative Thought process: Normal thought process present Assessment & Plan Assessment & Plan (1) Encounter for well woman exam with routine gynecological exam: Code(s): Z01.419 - Encounter for gynecological examination (general) (routine) without abnormal findings Category: Medical Plan Discussed: Current recommendations for pap smears per ASCCP guidelines. Breast awareness and periodic breast exams. Mammogram yearly. Maintain a healthy lifestyle including a well balanced diet and routine exercise. Plan ultrasound to check IUD position, uterine structures, pelvic anatomy. Patient verbalizes understanding and agrees to the plan of care. She was given opportunity to ask questions and all questions were answered to the best of my ability. RTO in one year for annual lawyer real estate examination. This note is constructed using voice recognition software. While every effort has been made to ensure accuracy, coal hauler operator errors may have been included. Orders: Orders US pelvic and transvaginal Today Z30.431 - Encounter for routine checking of intrauterine contraceptive device MM tomosynthesis screen imp BI Today Z12.31 - Encounter for screening mammogram for malignant neoplasm of breast Coding Level of Care Code Est Pt Prev Care 40-64y(21169) Diagnoses Encounter for well woman exam with routine gynecological exam Z01.419
--- OUTSIDE RECORDS SUMMARY | 2024-08-19 09:19 | XMS_ITS | Encounter Summary ---
Author Organization [facility] Address [address] [place] [address] Care Team Providers Care Benefits Director Name Role Phone Unavailable Primary Care Provider Unavailabl e Prior Encounters Date Type Department Care Team Description 05/12/2019 Converted 13x Documents [facility] [address], [address] [place] [address] <No scans attached> 05/12/2019 Converted CPS Chart Documents [facility] [address], [address] [place] [phone] <No scans attached> 05/12/2019 Converted CPS Chart Documents [facility] [address], [address] [place] [phone] <No scans attached> 05/12/2019 Converted 13x Documents [facility] [address], [address] [place] [address] <No scans attached> Plan of Treatment Not on file Procedures Procedure Name Priority Date/Time Associated Diagnosis Comments VARITYPIST CONSULTATION Routine 2013 1:00 AM [facility] ORAL HYGIENE INSTRUCTIONS Routine 2013 1:00 AM [facility] TOPICAL APPLICATION OF FLUORIDE VARNISH Routine 03/27/2014 1:00 AM [facility] PROPHYLAXIS - ADULT Routine 03/27/2014 1 :00 AM [facility] COMPREHENSIVE ORAL EVALUATION - NEW OR ESTABLISHED PATIENT Routine 03/25/2014 1:00 AM [facility] PANORAMIC RADIOGRAPHIC IMAGE Routine 03/25/2014 1:00 AM [facility] INTRAORAL - COMPREHENSIVE SERIES OF RADIOGRAPHIC IMAGES Routine 03/25/2014 1:00 AM [facility] INTRAORAL PHOTO Routine 03/25/2014 1:00 AM [facility] INTRAORAL PHOTO Routine 03/25/2014 1:00 AM [facility] INTRAORAL PHOTO Routine 03/25/2014 1:00 AM [facility] INTRAORAL PHOTO Routine 03/25/2014 1:00 AM [facility] 13 MOD COMPOSITE FILLING Routine 014 1:00 AM [facility] 14 DO COMPOSITE FILLING Routine 03/25/20 14 1:00 AM [facility] 15 O COMPOSITE FILLING Routine 4 1:00 AM [facility] Visit Diagnoses Not on file
--- OUTSIDE RECORDS SUMMARY | 2024-08-19 09:19 | XMS_ITS | Clinical Summary ---
Author Organization [facility] Address [address] [place] [address] Care Team Providers Care Case Management Manager Name Role Phone Unavailable Primary Care Provider Unavailabl e Social History Tobacco Use Types Packs/Day Years Used Date Smoking Tobacco: Never Assessed Comments Unknown Sex and Gender Information Value Date Recorded Sex Assigned at Not on file Legal Sex Female 2:42 PM PST Gender Identity Not on file Sexual Orientation Not on file Plan of Treatment Not on file
--- OUTSIDE RECORDS SUMMARY | 2024-08-19 09:20 | XMS_ITS | Continuity of Care Document ---
Author Name DOD-PA Organization DOD-[facility] Care Team Providers Care Department Director Name Role Phone [facility] Unavailable Unavailable Problems Combined list of problems from Department of Defense and Veterans Affairs facilities. It does not include entries that were removed or entered in error. Problem Status Onset Date Problem Type Date of Resolution Comments Source INJURY CAUSED BY ANIMAL NONVENOMOUS INSECT BITE Inactive Condition INJURY CAUSED B Y ANIMAL NONVENOMOUS INSECT BITE [facility] CONJUNCTIVITIS ADENOVIRAL Inactive Condition CONJUNCTIVITIS ADENOVIRAL DoD visit for: services physical pre-deployment Active Condition DoD Patient Counseling Medical Management Individual Patient Active Condition DoD Gynecologic Services Intrauterine Device (IUD) Reinsertion Active Condition [facility] Gynecologic Services Contraceptive General Counseling Active Condition DoD control method - intrauterine device (IUD) Active Condition [facility] TENOSYNOVITIS - TRIGGER FINGER (ACQUIRED) Active Condition DoD 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 [facility] ASTIGMATISM - REGULAR Active Condition DoD difficulty swallowing with food sticking in the middle chest Active Condition DoD POSTCOITAL BLEEDING Active Condition [facility] Gynecologic Services Intrauterine Device (IUD) Checking Inactive Condition [facility] ROUTINE PELVIC EXAM Inactive Condition [facility] Outpatient Physician Consultation Active Condition DoD KNEE SPRAIN Inactive Condition [facility] aircraft accident - 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 ( 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) Inactive Condition DoD KNEE SPRAIN LEFT Inactive Condition [facility] KNEE SPRAIN RIGHT Inactive Condition [facility] joint pain, localized in the knee Active Condition DoD cough Active Condition DoD nausea Inactive Condition DoD feeling congested in the chest Inactive Condition [facility] Patient Counseling: Active Condition [facility] Laboratory Studies Inactive Condition Do D Gynecologic Services Intrauterine Device (IUD) Inactive Condition [facility] visit for: screening exam for human papillomavirus (HPV) Inactive Condition DoD PHARYNGITIS Inactive Condition DoD INFECTIOUS DISEASE - VIRAL Inactive Condition DoD BACTERIAL VAGINOSIS Inactive Condition DoD vaginal odor Active Condition DoD COMMON COLD Inactive Condition Pt. inst ructed on medications, and RTC if worse, better 3 days, well one week. DoD ESOPHAGEAL REFLUX Active Condition stable DoD visit for: occupational health / fitness exam Inactive Condition 2796 completed [facility] REFRACTIVE ERROR - MYOPIA Active Condition DoD visit for: administrative purpose Inactive Condition DoD UPPER RESPIRATORY INFECTION Inactive Condition DoD OBESITY Active Condition DoD current diet needs improvement Active Condition DoD visit for: services physical Active Condition DoD VIRAL SYNDROME Inactive Condition VIRAL SYNDROME DoD abdominal pain Inactive Condition see above DoD CHEST PAIN Inactive Condition post oper ative - pt was advised by operating surgeon regarding f/u recommendations - will try naprosyn instead of motrin, pt advised vicodin and NSAIDs can be taken together if needed but hopefully she will not need the narcotics much longer - again deferred ongoing pain issues to the operating surgeon accept trial of naprosyn and profile DoD SINUSITIS ACUTE FRONTAL Inactive Condition rx as below, aggressive decongestion, supportive, f/u fever, new sx, or ftr 14d DoD EUSTACHIAN TUBE DYSFUNCTION Inactive Condition DoD PHARYNGITIS ACUTE Inactive Condition wendy norman infectious given LAD and sick contact - however would have thought it would begin to improve in 7-10 days - possible mono though certainly not classic in presentation - could do trial of claritin and sudafed for ETD/allergies - f/u if sx's persist DoD visit for: contraceptive surveillance pill Active Condition DoD abdominal pain in the central upper belly (epigastric) Inactive Condition DoD Abdomen Tenderness Direct Epigastric Inactive Condition DoD NICOTINE DEPENDENCE Active Condition DoD BENIGN SKIN NEOPLASM SUBCUTANEOUS LIPOMA Active Condition inflamed DoD Inquiry And Counseling: Contraceptive Practices Inactive Condition DoD visit for: screening exam for malignant neoplasm cervix Inactive Condition DoD ROUTINE GYNECOLOGICAL EXAM WITH CERVICAL PAP SMEAR Inactive Condition DoD CEREBRAL CONTUSION - WITH CONCUSSION Active Condition DoD OTITIS MEDIA Inactive Condition DoD ALLERGIC RHINITIS Inactive Condition Ad elba/ Tylenol as needed.May take Sudafed every 6 hours if needed.Increase fluids. DoD Immunizations Combined list of available immunizations from the Department of Defense and Veterans Affairs facilities. Immunization Series Date Given Administered By Site Reaction Lot Number CVX Code Drug Customer Success Intern Status Comments Source influenza virus vaccine, inactivated 2023 DINH Princeul devaughn, right (delt oid) [id number] 140 [employer] complet ed influenza virus vaccine, inactivat ed 02/19/24 Given [id number] MDG COVID Vaccine Pfizer 2021 [id number] PFIZER complet ed COVID Vaccine Pfizer 05/23/21 Given Ambulat ory Pharmac y SARS-COV-2 (COVID-19) vaccine, mRNA, spike protein, LNP, preservative free, 30 mcg/0.3mL dose 1 2021 [id number] Pfizer, Inc (PFR) complet ed SARS-COV- 2 (COVID-19 ) vaccine, mRNA, spike protein, LNP, preservat brennon free, 30 mcg/0.3mL dose DoD influenza, injectable, quadrivalent 2020 [id number] 158 Glax[employer] id complet ed influenza , injectabl e, quadrival ent 02/06/21 Given Ambulat ory Pharmac y influenza, injectable, quadrivalent, contains preservative 9 2020 [id number] 158 [facility] (SKB) complet ed influenza , injectabl e, quadrival ent, contains preservat brennon DoD COVID Vaccine Moderna 2020 [id number] complet ed COVID Vaccine Moderna 08/05/20 Given Ambulat ory Pharmac y SARS-COV-2 (COVID-19) vaccine, mRNA, spike protein, LNP, preservative free, 100 mcg or 50 mcg dose 2 2020 [id number] 207 Moderna [employer] (MOD) complet ed SARS-COV- 2 (COVID-19 ) vaccine, mRNA, spike protein, LNP, preservat brennon free, 100 mcg or 50 mcg dose DoD COVID Vaccine Moderna 2020 [id number] complet ed COVID Vaccine Moderna 07/04/20 Given Ambulat ory Pharmac y SARS-COV-2 (COVID-19) vaccine, mRNA, spike protein, LNP, preservative free, 100 mcg or 50 mcg dose 1 2020 [id number] 207 Moderna [employer] (MOD) complet ed SARS-COV- 2 (COVID-19 ) vaccine, mRNA, spike protein, LNP, preservat brennon free, 100 mcg or 50 mcg dose DoD influenza, injectable, quadrivalent- pf 2019 [id number] 150 Seq[employer] complet ed influenza , injectabl e, quadrival ent-pf 03/07/20 Given Ambulat ory Pharmac y Influenza, injectable, quadrivalent, preservative free 1 2019 [id number] 150 Se[employer] (SEQ) complet ed Influenza , injectabl e, quadrival ent, preservat brennon free DoD influenza, seasonal, injectable 2018 [id number] 141 [employer] complet ed influenza , seasonal, injectabl e 03/11/19 Given Ambulat ory Pharmac y Influenza, seasonal, injectable 1 2018 [id number] 141 [employer] (SEQ) complet ed Influenza , seasonal, injectabl e DoD influenza, seasonal, injectable 2017 [id number] 141 sanofi pasteur complet ed influenza , seasonal, injectabl e 01/22/18 Given Ambulat ory Pharmac y Influenza, seasonal, injectable 1 2017 [id number] 141 Sanofi Pasteur (PMC) complet ed Influenza , seasonal, injectabl e DoD influenza, seasonal, injectable 2016 [id number] 141 sanofi pasteur complet ed influenza , seasonal, injectabl e 04/03/17 Given Ambulat ory Pharmac y Influenza, seasonal, injectable 1 2016 [id number] 141 Sanofi Pasteur (PMC) complet ed Influenza , seasonal, injectabl e DoD tetanus, diphtheria, acellular pertu is 2016 [id number] 115 sanofi pasteur complet ed tetanus, diphtheri a, acellular pertussis 06/25/16 Given Ambulat ory Pharmac y tetanus toxoid, reduced diphtheria toxoid, and acellular pertu is vaccine, adsorbed 3 2016 [id number] 115 Sanofi Pasteur ([facility]) complet ed tetanus toxoid, reduced diphtheri a toxoid, and acellular pertussis vaccine, adsorbed DoD influenza, seasonal, injectable-pf 2015 [id number] 140 Se[employer]irus complet ed influenza , seasonal, injectabl e-pf 02/24/16 Given Ambulat ory Pharmac y Influenza, seasonal, injectable, preservative free 18 2015 [id number] 140 Seqirus (SEQ) comple t ed Influenza , seasonal, injectabl e, preservat brennon free DoD Human Papillomaviru s 9-valent vaccine 2015 [id number] 165 Merck & Company Inc complet ed Human Papilloma virus 9-valent vaccine 09/25/15 Given Ambulat ory Pharmac y Human Papillomaviru s 9-valent vaccine 3 2015 [id number] 165 Merck (MSD) complet ed Human Papilloma virus 9-valent vaccine DoD influenza, live, intranasal,qu adrivalent 2014 [id number] [facility] influenza , live, intranasa l,quadriv alent 03/01/15 Given Ambulat ory Pharmac y influenza, live, intranasal, quadrivalent 17 2014 [id number] 149 [employer]ggCart[employer], [employer]. (MED) complet ed influenza , live, intranasa l, quadrival ent DoD influenza, live, intranasal,qu adrivalent 2013 CK 149 Medimmune Inc comple t ed influenza , live, intranasa l,quadriv alent 02/21/14 Given Ambulat ory Pharmac y influenza, live, intranasal, quadrivalent 17 2013 CK 149 MedIProcessUnity, Inc. (MED) complet ed influenza , live, intranasa l, quadrival ent DoD measles/mumps /rubella virus vaccine 2013 [id number] 03 Merck & Company Inc complet ed measles/m umps/rube lla virus vaccine 12/05/13 Given Ambulat ory Pharmac y measles, mumps and rubella virus vaccine 1 2013 [id number] 03 Merck (MSD) complet ed measles, mumps and rubella virus vaccine DoD varicella virus vaccine 0 2013 21 () Not Given varicella virus vaccine DoD hepatitis B vaccine, unspecified formulation 0 2013 45 () Not Given hepatitis B vaccine, unspecifi ed formulati on DoD yellow fever vaccine 2013 [id number] 37 sanofi pasteur complet ed yellow fever vaccine 04/24/13 Given Ambulat ory Pharmac y yellow fever vaccine 0 2013 [id number] 37 Sanofi Pasteur (PMC) complet ed yellow fever vaccine DoD typhoid Vi capsular polysaccharid e vac 2012 [id number] 101 sanofi pasteur complet ed typhoid Vi capsular polysacch aride vac 02/05/13 Given Ambulat ory Pharmac y meningococcal A,C,Y,W-135 (MCV4P) 2012 [id number] 114 sanofi pasteur complet ed meningoco ccal A,C,Y,W-1 35 (MCV4P) 02/05/13 Given Ambulat ory Pharmac y typhoid Vi capsular polysaccharid e vaccine 4 2012 [id number] 101 Sanofi Pasteur (PMC) complet ed typhoid Vi capsular polysacch aride vaccine DoD meningococcal polysaccharid e (groups A, C, Y and W-135) diphtheria toxoid conjugate vaccine (MCV4P) 3 2012 [id number] 114 Sanofi Pasteur (PMC) complet ed meningoco ccal polysacch aride (groups A, C, Y and W-135) diphtheri a toxoid conjugate vaccine (MCV4P) DoD influenza, live, intranasal,qu adrivalent 2012 [id number] 149 Medimmune Inc comple t ed influenza , live, intranasa l,quadriv alent 01/25/13 Given Ambulat ory Pharmac y influenza, live, intranasal, quadrivalent 16 2012 [id number] 149 MedImmune, Inc. (MED) complet ed influenza , live, intranasa l, quadrival ent DoD influenza virus vaccine, live 2011 [id number] 111 Medimmune Inc comple t ed influenza virus vaccine, live 02/03/12 Given Ambulat ory Pharmac y influenza virus vaccine, live, attenuated, for intranasal use 1 2011 [id number] 111 MedImmune, Inc. (MED) complet ed influenza virus vaccine, live, attenuate d, for intranasa l use DoD influenza virus vaccine, live 2010 [id number] 111 Medimmune Inc comple t ed influenza virus vaccine, live 03/06/11 Given Ambulat ory Pharmac y influenza virus vaccine, live, attenuated, for intranasal use 1 2010 [id number] 111 MedImmune, Inc. (MED) complet ed influenza virus vaccine, live, attenuate d, for intranasa l use [facility] tuberculin purified protein derivative 2009 [id number] 96 sanofi pasteur complet ed tuberculi n purified protein derivativ e 02/16/10 Given Ambulat ory Pharmac y influenza virus vaccine, live 2009 [id number] 111 Medimmune Inc comple t ed influenza virus vaccine, live 02/16/10 Given Ambulat ory Pharmac y influenza virus vaccine, live, attenuated, for intranasal use 1 2009 [id number] 111 MedImmune, Inc. (MED) complet ed influenza virus vaccine, live, attenuate d, for intranasa l use [facility] Novel influenza-H1N 1-09, injectable 2009 [id number] 1A 127 Novartis [employer] complet ed Novel influenza -C4F5-59, injectabl e 05/09/09 Given Ambulat ory Pharmac y anthrax vaccine 2009 [id number] 24 [employer] complet ed anthrax vaccine 05/09/09 Given Ambulat ory Pharmac y anthrax vaccine 2 2009 [id number] 24 [employer]gent [employer] ([facility]) complet ed anthrax vaccine DoD Novel influenza-H1N 1-09, injectable 1 2009 [id number] 1A 127 Novartis Opez. (NOV) complet ed Novel influenza -S0O8-02, injectabl e DoD vaccinia (smallpox) vaccine 2008 VV04-00 3A 75 [employer] complet ed vaccinia (smallpox ) vaccine 04/06/09 Given Ambulat ory Pharmac y vaccinia (smallpox) vaccine 1 2008 VV04-00 3A 75 [facility] complet ed vaccinia (smallpox ) vaccine DoD typhoid Vi capsular polysaccharid e vac 2008 [id number] 101 sanofi pasteur complet ed typhoid Vi capsular polysacch aride vac 03/29/09 Given Ambulat ory Pharmac y typhoid Vi capsular polysaccharid e vaccine 1 2008 [id number] 101 Sanofi Pasteur ([facility]) complet ed typhoid Vi capsular polysacch aride vaccine DoD anthrax vaccine 2008 [id number] 24 [employer] complet ed anthrax vaccine 03/17/09 Given Ambulat ory Pharmac y influenza virus vaccine,split 2008 [id number] 15 sanofi pasteur complet ed influenza virus vaccine,s plit 03/17/09 Given Ambulat ory Pharmac y influenza virus vaccine, split virus (incl. purified surface antigen)-reti red CODE 1 2008 [id number] 15 Sanofi Pasteur ([facility]) complet ed influenza virus vaccine, split virus (incl. purified surface antigen)- retired CODE DoD anthrax vaccine 1 2008 [id number] 24 [employer] ([facility]) complet ed anthrax vaccine DoD influenza virus vaccine, live 2007 [id number] 111 [employer] comple t ed influenza virus vaccine, live 05/01/07 Given Ambulat ory Pharmac y influenza virus vaccine, live, attenuated, for intranasal use 1 2007 [id number] 111 [employer] (MED) complet ed influenza virus vaccine, live, attenuate d, for intranasa l use DoD Human Papillomaviru s,quadrivalen t(HPV4) 2006 [id number] 62 Merck & Company [employer] complet ed Human Papilloma virus,yvonne drivalent (HPV4) 10/26/06 Given Ambulat ory Pharmac y human papilloma virus vaccine, quadrivalent 1 2006 [id number] 62 Merck (MSD) complet ed human papilloma virus vaccine, quadrival ent DoD Human Papillomaviru s,quadrivalen t(HPV4) 2006 [id number] 62 [employer] & [employer] Inc complet ed Human Papilloma virus,yvonne drivalent (HPV4) 08/14/06 Given Ambulat ory Pharmac y human papilloma virus vaccine, quadrivalent 1 2006 [id number] 62 Merck (MSD) complet ed human papilloma virus vaccine, quadrival ent DoD influenza virus vaccine, live 2005 [id number] 111 [employer] [facility] comple t ed influenza virus vaccine, live 01/19/06 Given Ambulat ory Pharmac y influenza virus vaccine, live, attenuated, for intranasal use 1 2005 [id number] 111 [employer] (MED) complet ed influenza virus vaccine, live, attenuate d, for intranasa l use DoD tetanus, diphtheria, acellular pertu is 2005 [id number] 115 sanofi pasteur complet ed tetanus, diphtheri a, acellular pertussis 01/11/06 Given Ambulat ory Pharmac y hepatitis B adult vaccine 2005 [id number] 43 GlaxoSmithKli ne complet ed hepatitis B adult vaccine 01/11/06 Given Ambulat ory Pharmac y hepatitis B vaccine, adult dosage 3 2005 [id number] 43 [facility] (SKB) complet ed hepatitis B vaccine, adult dosage DoD tetanus toxoid, reduced diphtheria toxoid, and acellular pertu is vaccine, adsorbed 1 2005 [id number] 115 Sanofi Pasteur (PMC) complet ed tetanus toxoid, reduced diphtheri a toxoid, and acellular pertussis vaccine, adsorbed DoD hepatitis B adult vaccine 2005 [id number] 43 GlaxoSmithKli ne complet ed hepatitis B adult vaccine 07/05/05 Given Ambulat ory Pharmac y hepatitis B vaccine, adult dosage 2 2005 [id number] 43 [employer] (SKB) complet ed hepatitis B vaccine, adult dosage DoD influenza virus vaccine,split 2004 [id number] 15 sanofi pasteur complet ed influenza virus vaccine,s plit 03/09/05 Given Ambulat ory Pharmac y influenza virus vaccine, whole virus 2004 [id number] 16 sanofi pasteur complet ed influenza virus vaccine, whole virus 03/09/05 Given Ambulat ory Pharmac y influenza virus vaccine, split virus (incl. purified surface antigen)-reti red CODE 1 2004 [id number] 15 Sanofi Pasteur ([facility]) complet ed influenza virus vaccine, split virus (incl. purified surface antigen)- retired CODE DoD influenza virus vaccine, whole virus 1 2004 [id number] 16 Sanofi Pasteur ([facility]) complet ed influenza virus vaccine, whole virus DoD hepatitis B adult vaccine 2004 [id number] 43 GlaxoSmithKli ne complet ed hepatitis B adult vaccine 03/07/05 Given Ambulat ory Pharmac y varicella virus vaccine 0 2004 21 () Not Given varicella virus vaccine DoD hepatitis B vaccine, adult dosage 1 2004 [id number] [id number] 43 [employer]line (SKB) complet ed hepatitis B vaccine, adult dosage DoD tuberculin purified protein derivative 2004 (L) [id number] 96 sanofi pasteur complet ed tuberculi n purified protein derivativ e 02/20/05 Given Ambulat ory Pharmac y tuberculin purified protein derivative 2004 [id number] 96 [facility] complet ed tuberculi n purified protein derivativ e 09/23/04 Given Ambulat ory Pharmac y influenza virus vaccine,split 2003 [id number] 15 sanofi pasteur complet ed influenza virus vaccine,s plit 03/24/04 Given Ambulat ory Pharmac y influenza virus vaccine, split virus (incl. purified surface antigen)-reti red CODE 0 2003 [id number] 15 Sanofi Pasteur ([facility]MC) complet ed influenza virus vaccine, split virus (incl. purified surface antigen)- retired CODE DoD typhoid vaccine, parenteral 2003 [id number] 41 sanofi pasteur complet ed typhoid vaccine, parentera l 06/16/03 Given Ambulat ory Pharmac y typhoid vaccine, parenteral, other than acetone-kille d, dried 0 2003 [id number] 41 Sanofi Pasteur ([facility]) complet ed typhoid vaccine, parentera l, other than acetone-k illed, dried DoD yellow fever vaccine 2003 [id number] 37 [facility] yellow fever vaccine 05/07/03 Given Ambulat ory Pharmac y meningococcal polysaccharid e (MPSV4) 2003 [id number] 32 [facility] meningoco ccal polysacch aride (MPSV4) 05/07/03 Given Ambulat ory Pharmac y meningococcal polysaccharid e vaccine (MPSV4) 0 2003 [id number] 32 [place] (CON) complet ed meningoco ccal polysacch aride vaccine (MPSV4) DoD yellow fever vaccine 0 2003 [id number] 37 [place] (CON) complet ed yellow fever vaccine DoD influenza virus vaccine, whole virus 2002 [id number] 16 sanofi pasteur complet ed influenza virus vaccine, whole virus 03/18/03 Given Ambulat ory Pharmac y influenza virus vaccine, whole virus 0 2002 [id number] 16 Sanofi Pasteur ([facility]) complet ed influenza virus vaccine, whole virus DoD tuberculin purified protein derivative 2002 [id number] 96 [facility] complet ed tuberculi n purified protein derivativ e 06/24/02 Given Ambulat ory Pharmac y influenza virus vaccine,split 2002 15 complet ed influenza virus vaccine,s plit 05/02/02 Given Ambulat ory Pharmac y influenza virus vaccine, whole virus 2002 16 complet ed influenza virus vaccine, whole virus 05/02/02 Given Ambulat ory Pharmac y influenza virus vaccine, split virus (incl. purified surface antigen)-reti red CODE 1 2002 15 () complet ed influenza virus vaccine, split virus (incl. purified surface antigen)- retired CODE DoD influenza virus vaccine, whole virus 0 2002 16 () complet ed influenza virus vaccine, whole virus DoD typhoid Vi capsular polysaccharid e vac 2001 101 complet ed typhoid Vi capsular polysacch aride vac 07/02/01 Given Ambulat ory Pharmac y tuberculin purified protein derivative 2001 96 complet ed tuberculi n purified protein derivativ e 07/02/01 Given Ambulat ory Pharmac y typhoid Vi capsular polysaccharid e vaccine 0 2001 101 () complet ed typhoid Vi capsular polysacch aride vaccine DoD influenza virus vaccine, whole virus 2000 [id number] 16 Merck & Company Inc complet ed influenza virus vaccine, whole virus 03/11/01 Given Ambulat ory Pharmac y influenza virus vaccine, whole virus 0 2000 [id number] 16 Merck (MSD) complet ed influenza virus vaccine, whole virus DoD influenza virus vaccine, whole virus [id number] [facility] complet ed influenza virus vaccine, whole virus 05/28/00 Given Ambulat ory Pharmac y influenza virus vaccine, whole virus 0 2000 [id number] 16 [facility] ([facility]) complet ed influenza virus vaccine, whole virus DoD influenza virus vaccine, whole virus 1998 [id number] 16 [facility] complet ed influenza virus vaccine, whole virus 03/14/99 Given Ambulat ory Pharmac y influenza virus vaccine, whole virus 0 1998 [id number] 16 [facility] (CON) complet ed influenza virus vaccine, whole virus DoD hepatitis A adult vaccine 1998 [id number] 52 Merck & Company Inc complet ed hepatitis A adult vaccine 11/02/98 Given Ambulat ory Pharmac y hepatitis A vaccine, adult dosage 2 1998 [id number] 52 Merck (MSD) complet ed hepatitis A vaccine, adult dosage DoD hepatitis A adult vaccine 1998 [id number] 52 GlaxoSmithKli id complet ed hepatitis A adult vaccine 05/07/98 Given Ambulat ory Pharmac y poliovirus vaccine, live, oral 1998 [id number] 02 [employer] [facility] complet ed polioviru s vaccine, live, oral 05/07/98 Given Ambulat ory Pharmac y trivalent poliovirus vaccine, live, oral 0 1998 [id number] 02 [employer] (YAZ) comple t ed trivalent polioviru s vaccine, live, oral DoD measles, mumps and rubella virus vaccine 0 1998 03 () Not Given measles, mumps and rubella virus vaccine DoD hepatitis A vaccine, adult dosage 1 1998 [id number] [address] [place] [address] (SKB) complet ed hepatitis A vaccine, adult dosage DoD meningococcal polysaccharid e (MPSV4) [id number] 32 [facility] complet ed meningoco ccal polysacch aride (MPSV4) 04/30/98 Given Ambulat ory Pharmac y tuberculin purified protein derivative 1998 96 complet ed tuberculi n purified protein derivativ e 04/30/98 Given Ambulat ory Pharmac y influenza virus vaccine, whole virus [id number] 16 [facility] complet ed influenza virus vaccine, whole virus 04/30/98 Given Ambulat ory Pharmac y tetanus-dipht h toxoids (Td) adult/adol [id number] [id number] 09 [facility] complet ed tetanus-d iphth toxoids (Td) adult/ado l 04/30/98 Given Ambulat ory Pharmac y tetanus and diphtheria toxoids, adsorbed, preservative free, for adult use (2 Lf of tetanus toxoid and 2 Lf of diphtheria toxoid) 0 [id number] 09 [facility] (CON) complet ed tetanus and diphtheri a toxoids, adsorbed, preservat brennon free, for adult use (2 Lf of tetanus toxoid and 2 Lf of diphtheri a toxoid) DoD influenza virus vaccine, whole virus 0 [id number] 16 [facility] ([place]) complet ed influenza virus vaccine, whole virus DoD meningococcal polysaccharid e vaccine (MPSV4) 0 [id number] [id number] 32 [facility] (CON) complet ed meningoco ccal polysacch aride vaccine (MPSV4) DoD Results Combined list of recent chemistry, hematology and other laboratory results from Department of Defense and Veterans Affairs, ranging from 15 months to all on record, depending upon the facility. Order Name Results Value Reference Range Date Interpretation Specimen Comments Source Infectiou s Disease HIV-1/O/2 Non-Reac tive 1 (07/05/23 9:56 AM) 07/04 N Interpretiv e Data: INTERPRETAT ION: This method is a screening procedure for the detection of HIV p24 Antigen and Antibodies to HIV-1, including Group O, and/or HIV-2. NON-REACTIV E: HIV-1 antigen and HIV-1 / HIV-2 antibodies were not detected. No laboratory evidence of HIV infection. A negative test result does not exclude the possibility of exposure to or infection with HIV. HIV antibodies and/or p24 antigen may be undetectabl e in some stages of the infection and in some clinical conditions. If acute HIV infection is suspected, consider submitting another specimen to a reference laboratory for HIV-1 RNA. SCREEN REACTIVE - CONFIRMATIO N TO FOLLOW: Possible presence of HIV-1antibo dies, HIV-2 antibodies and/or HIV-1 p24 antigen. Specimen will reflex to the confirmatio n testing that fulfills the Center for Disease Control and Prevention' s HIV diagnostic algorithm. Refer to [facility] Lab Guide for additional information : https://[employer]. [facility]/ [email or web address]/kx5/EPIL ab/Pages/la b_guide.asp x Testing performed by Td gibbs. 5600A-U Exercise the [employer] Miscellan eous Sendouts Repository Sample Received (07/05/23 9:56 AM) 07/04 N 5600A-U docBeatSACartMomo EPILAB Encounters Combined list of: 1) Encounters from Department of Veterans Affairs facilities going backup to the last 18 months, not all VA inpatient encounters are included; 2) Encounters from the Department of Defense facilities going backup to 280 months. Location Location Details Encounter Type Encounter Number Reason For Visit Attending Provider ADM Date DC Date Status Disposition Source [facility] TO [facility] FROM OTHER THAN ER OR [facility] [id number] 03/05 RETURNED TO [facility] [employer] OUTPATIENT [id number] sinus problem s RACHEL JACOBO 11/29 Released w/o Limitations [employer] [employer]([facility]) OUTPATIENT [id number] sore throat NOEMI JEWELL 12/30 Released w/o Limitations [employer]([facility]) [employer]([facility]ag [facility]) OUTPATIENT [id number] ANSHU WEBER 03/06 Sick at Home/Quarter s [employer]([facility] ag[facility]) [employer]([facility]) OUTPATIENT [id number] headach e GERARD CHIANG 06/30 Released w/o Limitations [employer](E ag[facility]) [employer]([facility]) OUTPATIENT [id number] ANNUAL PAP SHARMILA WALKER A.H. 07/17 Released w/o Limitations [employer]([facility]) [employer]([facility]) OUTPATIENT [id number] lump on back getting bigger, painful * LEXIS AHUJA 08/23 Released w/o Limitations [employer]([facility] ag[facility]) [employer]([facility]) OUTPATIENT [id number] stomach pain and headach e for 2 days HIWOT PATIÑO 08/28 Released w/o Limitations [employer]) OUTPATIENT [id number] refill of agathaSHARMILA Toro A.H. 10/02 Released w/o Limitations [employer]([facility]) [employer]([facility]) OUTPATIENT [id number] sore throat x 1.5 weeks LEXIS AHUJA 11/21 Released w/o Limitations [employer](E ag[facility]) [employer]([facility]) OUTPATIENT [id number] SINUS AND COUGH ROGE KRUGER 02/15 Released w/o Limitations [employer](E ag[facility]) [employer]([facility]) OUTPATIENT [id number] FUP AFTER ELECTIV E SURGERY OFF BASE* LEXIS AHUJA 04/10 Released with Work/Duty Limitations [employer]([facility] ag[facility]) [employer]([facility]) OUTPATIENT [id number] headach e/nause BONNY Bagley 05/01 Sick at Home/Quarter s [employer]([facility]) [employer]([facility]ag [facility]) OUTPATIENT [id number] DAMON RONDON 05/22 Released w/o Limitations [employer]([facility] ag[facility]) [employer]([facility]) OUTPATIENT [id number] sinus infecti on GERARD CHIANG W 06/20 Released w/o Limitations [employer](E agle) [employer]([facility]) TELE CONSULT [id number] Papmarguerite drewt chidi BENAVIDESJASSI MARTINEZAdrianna Freire 06/21 [employer]([facility]) [employer]([facility]) OUTPATIENT [id number] annual pap SHARMILA WALKER 08/14 Released w/o Limitations [employer]([facility]) [employer]([facility]) OUTPATIENT [id number] eye exam* ZEV MOSHER 08/28 Released w/o Limitations [employer](O ptometr y Clinic) [employer]([facility]ag [facility]) OUTPATIENT [id number] sep LEXIS Allen 10/09 Released w/o Limitations [employer]([facility]) [facility]) OUTPATIENT [id number] headach e,sore throat* ROGE BAL 11/19 Released w/o Limitations [employer]([facility]) [employer]( [employer]) TELE CONSULT [id number] IUD concern s TANYA FORTUNE 01/26 [employer](Z [employer]) [employer]([facility]) OUTPATIENT [id number] vaginal odor (fishy) , dyspare ASHLEE Avina 01/26 Released w/o Limitations [employer]([facility]) [facility] [facility]) OUTPATIENT [id number] sore throat/ congest ion BENNIE RIVERA 02/02 Sick at Home/Quarter s [employer]([facility]) [employer]([facility]) OUTPATIENT [id number] headach KATHERINE Reardon 11/15 Released w/o Limitations [employer]([facility]) [facility]([employer] ) OUTPATIENT [id number] sore throat, bad cough, watery eye AMIE ROSS 11/18 Sick at Home/Quarter s [employer]) [employer]([facility] Team M) OUTPATIENT [id number] SC-SORE THROAT, HEADACH E, CONGEST ION ELVA GEORGE 05/12 Released w/o Limitations [employer]([facility]) [employer]([facility]) OUTPATIENT [id number] on AD orders: pap LAWANDA KUO 06/14 Released w/o Limitations [employer]([facility]) [facility]) TELE CONSULT [id number] Pap results LAWANDA KUO 06/23 [employer]([facility]) [facility]) OUTPATIENT [id number] Repeat PAP LAWANDA KUO 06/23 Released w/o Limitations [facility]) [facility]([employer] ) OUTPATIENT [id number] fever,b odyache s; Active Reservi st,will bring Orders BLANCO HAMMER P 10/06 Sick at Home/Quarter s [employer]) [facility] [facility]) TELE CONSULT [id number] HIV test - Tommy edmond (Yamile willing to order test) BLANCO HAMMER P 11/04 [employer]([facility]) [facility] ) TELE CONSULT [id number] HIV lab results request DAYALBARO N 11/11 [employer]) [facility]) TELE CONSULT [id number] Triage/ MIGUEL ANGEL Daniels 04/18 [employer](C [place]) [facility]) OUTPATIENT [id number] Walk-in per Marlen Team SANDRA HODGES 04/18 Released w/o Limitations [employer]) [facility](JANIE ODONNELL [facility]) TELE CONSULT [id number] Notes Entered by: JAYMIE_ARCADIO LAWLER-Katy VIRAMONTES A 03 Nov 2011 1434 ------- ------- ------- ------- -- Injury left knee/ Milena n/Joselin we by the last 2 ssn. MIGUEL ANGEL HAIR 11/[address] [place] [address]([facility]) [address] [place] [address]([facility] Costakaterina r) OUTPATIENT [id number] lt knee pain BEN ALONSO 11/05 Released with Work/Duty Limitations [address] [place] [address]([facility]) [address] [place] [address]([facility]) OUTPATIENT [id number] Notes Entered by: JOHN PARDO 06 Nov 2011 1404 ------- ------- ------- ------- -- left knee velcrow brace with straps DUANE GOLDEN 11/05 Released w/o Limitations [address] [place] [address] [address] [place] [address](Pala) TELE CONSULT [id number] YEIMY VASQUEZ 11/[address] [place] [address](Tadeo fowler) [address] [place] [address]([facility]) OUTPATIENT [id number] Left knee pain KATHERINE FLORENCE 11/14 Released w/o Limitations [address] [place] [address]([facility]) [address] [place] [address]([facility]) TELE CONSULT [id number] Notes Entered by: ROBY GUERRERO M 20 Nov 2011 1133 ------- ------- ------- ------- -- Network Results - MRI left knee 11/01 KATHERINE FLORENCE 11/[address] [place] [address]([facility]) [address] [place] [address]([facility]) OUTPATIENT [id number] abnorma l vaginal bleedin g/ PPR LAWANDA KUO 11/27 Released w/o Limitations [address] [place] [address]([facility]) [facility]) TELE CONSULT [id number] Notes Entered by: LAWANDA KUO 04 Dec [id number] ------- ------- ------- ------- -- Pelvic u/s results LAWANDA KUO 12/04 [facility]) [facility]) OUTPATIENT [id number] KATHERINE Lacey 02/26 Released w/o Limitations [facility]) [facility]) TELE CONSULT [id number] Notes Entered by: OSWALDO CORTEZ 18 Mar [id number] ------- ------- ------- ------- -- UC f/u KIRILL GOMEZ 03/18 [facility]) [facility]) OUTPATIENT [id number] acid reflux ppr decline d ER for chest pain KATHERINE FLORENCE 04/03 Released w/o Limitations [facility]) [facility]) TELE CONSULT [id number] Notes Entered by: TONA PURI 03 May 2012 1209 ------- ------- ------- ------- -- Network Results - Krystinan anni Medicluis e 03/04 KATHERINE FLORENCE 05/03 [facility]) [facility] [id number] annual exam (Hx of STEPHANIE JENSEN) ELMER MCMANUS 06/21 Released w/o Limitations [address] [place] [address] Group(O ptometr y Clinic) [facility]) TELE CONSULT [id number] Notes Entered by: MANA AL 26 Jun 2012 1234 ------- ------- ------- ------- -- Network Results - Surgica l Patholo gy Report 05/05 KATHERINE FLORENCE 06/26 [facility] TELE CONSULT [id number] Notes Entered by: ANA CRISTINA PERES 27 Jun 2012 0947 ------- ------- ------- ------- -- Network Results - Gastroe nterolo gy 05/05 KATHERINE FLORENCE 06/27 [employer]([facility]un) [facility] Wilmankaterinae r) OUTPATIENT [id number] left middle finger pain BLANCO HAMMER P 09/30 Released w/o Limitations [facility] Mehran ner) [facility]) OUTPATIENT [id number] Notes Entered by: Josiane BARRIOS 16 Oct 2012 1434 ------- ------- ------- ------- -- AD 266A ULISSES BARRIOS 10/16 Released w/o Limitations [facility]) [facility]) TELE CONSULT [id number] Notes Entered by: ANDREA NOLAND 09 Jan 2013 1351 ------- ------- ------- ------- -- Appt chidi/ GIANNA Birmingham 01/09 [facility]) [facility]) OUTPATIENT [id number] IUD consult LAWANDA KUO 01/15 Released w/o Limitations [facility]) [facility] Robbie) OUTPATIENT [id number] med refill 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 deploym ent BEN ALONSO 01/23 Released w/o Limitations [facility] ) [employer]([facility]) OUTPATIENT [id number] Mirena removal /new inserti on LAWANDA KUO 01/23 Released w/o Limitations [facility]) [employer]([facility]) TELE CONSULT [id number] Notes Entered by: Trang JOHNSON 05 Feb 2013 0820 ------- ------- ------- ------- -- Aly circchelsea r shade on chest- JOSHUA Murphy 02/05 [employer]([facility] ) [facility]) OUTPATIENT [id number] PHA member went online 01/15 KHOI SHERMAN 02/11 Released w/o Limitations [facility]) [employer]([facility]) OUTPATIENT [id number] dieudonne [id number] MEKHI KUO 02/19 Released w/o Limitations [facility]) [facility]) OUTPATIENT [id number] IUD FU LAWANDA KUO 02/25 Released w/o Limitations [facility]) [facility]) OUTPATIENT [id number] PRE DEPLOYM LALITA MCCORMACK 02/26 Released w/o Limitations [facility]) [facility]) OUTPATIENT [id number] Notes Entered by: Josiane ARREAGA 26 Feb 2013 1025 ------- ------- ------- ------- -- Pre-VIANNEY Espinosa 02/26 Released w/o Limitations [employer]([facility]) [facility] Facility OUTPATIENT [id number] Theater Provider 08/09 Released w/o Limitations [facility] OUTPATIENT [id number] Theater Provider 08/09 Released w/o Limitations [facility] [employer]([facility]) OUTPATIENT [id number] Notes Entered by: Padmini GALVAN 30 Oct 2013 1217 ------- ------- ------- ------- -- sore throat/ ear pain MAURICIO GALVAN 10/30 Released w/o Limitations [employer]([facility]) [employer]([facility]) OUTPATIENT [id number] Notes Entered by: Padmini GALVAN 31 Oct 2013 1407 ------- ------- ------- ------- -- rib pain MAURICIO GALVAN 10/31 Released with Work/Duty Limitations [employer]([facility]) [employer]([facility]) OUTPATIENT [id number] BOT: rib pain on left side JACK JOHNSON 11/05 Released with Work/Duty Limitations [employer]([facility]) [employer]([facility]) OUTPATIENT [id number] BOT: f/u for rib pain JACK JOHNSON 11/14 Released with Work/Duty Limitations [employer]([facility]) [employer]([facility]) TELE CONSULT [id number] Notes Entered by: KAVIN JOHNSON 14 Nov 2013 1221 ------- ------- ------- ------- -- CT ANA CRISTINA KENNEDY 11/14 [employer]([facility]) [employer]([facility]) OUTPATIENT [id number] LT wrist pain moving upward to shoulde DANITZA Haskins 06/30 Released w/o Limitations [employer]([facility]) [employer]([facility]) OUTPATIENT [id number] F/U L arm pain x2 days DANITZA OBRIEN 07/07 Released w/o Limitations [employer](S [facility]) [employer](DMA FB Adrianna Landry) OUTPATIENT [id number] ANAY Darby 10/12 Released w/o Limitations [employer](D [facility] I [place]) [employer]) OUTPATIENT [id number] Notes Entered by: RES_MED Tadeo OLSON 25 Sep 2015 0952 ------- ------- ------- ------- -- Non BONNY Downs 09/24 Released w/o Limitations [employer] [place]) [place] [address]([employer]N G [address] [employer]) OUTPATIENT [id number] 3 Notes Entered by: OSIRIS JOE 01 Aug 2020 1449 ------- ------- ------- ------- -- OSIRIS MARTINEZ 08/01 Released w/o Limitations [facility] [place] [address](A FNG [address] [facility]) [place] [address](AFN G [address] [facility] [employer]) OUTPATIENT [id number] 5 Notes Entered by: PATRICIA SHEN 14 Jul 2021 1429 ------- ------- ------- ------- -- TIMOTHY MATA 07/14 Released w/o Limitations [facility] [place] [address](A FNG [address] [facility]) 8203R-104 MDG Mass Vaccine [id number] 02/18 8203R-1 04 MDG 8203R-104 MDG Between Visit [id number] 02/24 Discharge Disposition: Home or Self Care 8203R-1 04 MDG 8203R-104 MDG Between Visit [id number] 04/01 Discharge Disposition: Home or Self Care 8203R-1 04 DENIS 8203R-104 MDLexi Care Not Rendered [id number] 07/25 Discharge Disposition: Home or Self Care 8203R-1 04 DENIS Etienne Between Visit 07/27 Discharge Disposition: Home or Self Care Mona chopra Org Procedures Combined list of: 1) Procedures from Department of Veterans Affairs facilities going back up to thelast 18 months, not all VA non-surgical procedures are included; 2) All procedures from the Department of Defense facilities. Procedure Procedure Type Code Date Perfomer Comments Sourc e No data available for this section Ambulatory Pharmacy PATIENT EDUCATION, NOT OTHERWISE CLASSIFIED, NON-PHYSICIAN PROVIDER, INDIVIDUAL, PER SESSION 004 DoD PRESCRIPTION OF OPTICAL AND PHYSICAL CHARACTERISTICS OF AND FITTING OF CONTACT LENS, WITH MEDICAL SUPERVISION OF ADAPTATION; CORNEAL LENS, BOTH EYES, EXCEPT FOR APHAKIA 003 DoD CULTURE, BACTERIAL; ANY OTHER SOURCE EXCEPT URINE, BLOOD OR STOOL, AEROBIC, WITH ISOLATION AND PRESUMPTIVE IDENTIFICATION OF ISOLATES 002 DoD DESTRUCTION (EG, LASER SURGERY, ELECTROSURGERY, CRYOSURGERY, CHEMOSURGERY, SURGICAL CURETTEMENT), OF BENIGN LESIONS OTHER THAN SKIN TAGS OR CUTANEOUS VASCULAR PROLIFERATIVE LESIONS; UP TO 14 LESIONS 001 DoD PHYS/OTH QUALIFIED HEALTH ERADICATOR QUALIFIED,EDUCATION,T RAIN,LICENSURE/REGULA TION (WHEN APPLICABLE) EDUC SER RENDERED TO PATS IN A GRP SETTING (EG,,OBESITY, OR DIABETIC INSTRUCT) DoD PHYS/OTH QUALIFIED HEALTH ERADICATOR QUALIFIED,EDUCATION,T RAIN,LICENSURE/REGULA TION (WHEN APPLICABLE) EDUC SER RENDERED TO PATS IN A GRP SETTING (EG,,OBESITY, OR DIABETIC INSTRUCT) DoD PELVIC EXAMINATION UNDER ANESTHESIA (OTHER THAN LOCAL) DoD PURE TONE AUDIOMETRY (THRESHOLD); AIR ONLY DoD DETERMINATION OF REFRACTIVE STATE DoD NONINVASIVE EAR OR PULSE OXIMETRY FOR OXYGEN SATURATION; SINGLE DETERMINATION DoD SCREENING PAPANICOLAOU SMEAR; OBTAINING, PREPARING AND CONVEYANCE OF CERVICAL OR VAGINAL SMEAR TO LABORATORY DoD REPAIR OF OTHER CURRENT OBSTETRIC LACERATION 004 [facility] NON-STRESS TEST 004 [facility] NON-STRESS TEST 004 [facility] PHYS/OTH QUALIFIED HEALTH ERADICATOR QUALIFIED,EDUCATION,T RAIN,LICENSURE/REGULA TION (WHEN APPLICABLE) EDUC SER RENDERED TO PATS IN A GRP SETTING (EG,,OBESITY, OR DIABETIC INSTRUCT) 004 [facility] SCREENING PAPANICOLAOU SMEAR; OBTAINING, PREPARING AND CONVEYANCE OF CERVICAL OR VAGINAL SMEAR TO LABORATORY 004 [facility] DETERMINATION OF REFRACTIVE STATE 004 [facility] COLPOSCOPY OF THE CERVIX INCLUDING UPPER/ADJACENT VAGINA; WITH BIOPSY(S) OF THE CERVIX AND ENDOCERVICAL CURETTAGE 003 DoD SCREENING PAPANICOLAOU SMEAR; OBTAINING, PREPARING AND CONVEYANCE OF CERVICAL OR VAGINAL SMEAR TO LABORATORY 003 DoD NEUROPSYCHOLOGICAL TESTING (EG, [place] CARD SORTING TEST), ADMINISTERED BY A COMPUTER, WITH QUALIFIED HEALTH ERADICATOR INTERPRETATION AND REPORT 013 DoD INSERTION OF LEVONORGESTREL-RELEAS ING INTRAUTERINE SYSTEM 013 DoD FITTING OF SPECTACLES, EXCEPT FOR APHAKIA; MONOFOCAL 013 DoD KNEE ORTHOSIS, LOCKING KNEE JOINT(S), POSITIONAL ORTHOSIS, PREFABRICATED, INCLUDES FITTING AND ADJUSTMENT 012 [facility] TELE ASSESS & MGT SRV PROV QUAL NONPHYS HLTH CARE PRO TO EST PAT,PARENT,GUARD NOT ORIG REL ASSESS & MGT SRV PROV W/IN PREV 7 DAYS NOR LEAD ASSESS & MGT SRV/PX W/IN NXT 24 HR/SOON APT;5-10 MIN MED DIS 011 DoD SCREENING PAPANICOLAOU SMEAR; OBTAINING, PREPARING AND CONVEYANCE OF CERVICAL OR VAGINAL SMEAR TO LABORATORY 011 DoD SCREENING PAPANICOLAOU SMEAR; OBTAINING, PREPARING AND CONVEYANCE OF CERVICAL OR VAGINAL SMEAR TO LABORATORY 011 DoD FITTING OF SPECTACLES, EXCEPT FOR APHAKIA; MONOFOCAL 007 DoD SCREENING PAPANICOLAOU SMEAR; OBTAINING, PREPARING AND CONVEYANCE OF CERVICAL OR VAGINAL SMEAR TO LABORATORY 007 DoD INJECTION, PROMETHAZINE HCL, UP TO 50 MG 006 DoD PRESCRIPTION OF OPTICAL AND PHYSICAL CHARACTERISTICS OF AND FITTING OF CONTACT LENS, WITH MEDICAL SUPERVISION OF ADAPTATION; CORNEAL LENS, BOTH EYES, EXCEPT FOR APHAKIA 006 DoD SCREENING PAPANICOLAOU SMEAR; OBTAINING, PREPARING AND CONVEYANCE OF CERVICAL OR VAGINAL SMEAR TO LABORATORY 006 DoD Psychometric Neuropsych Testing Battery Admin By Computer Psychometric Neuropsych Testing Battery Admin By Computer 38693 AYAZ STOREY Insertion of levonorgestrel-releas ing intrauterine system 013 LAWANDA KUO [facility] Intrauterine Device (IUD) Removal Gynecologic Services Intrauterine Device (IUD) Removal 51050 013 LAWANDA KUO Fundus Photography Fundus Photography 33154 04/24 013 ELMER MCMANUS Determination Of Refractive State Determination Of Refractive State [phone] ELMER MCMANUS Ophthalmological New Patient Start Comprehensive Care Ophthalmological New Patient Start Comprehensive Care [phone] ELMER MCMANUS [employer] Fitting Monofocals (Not For Aphakia) [employer] Fitting Monofocals (Not For Aphakia) 30032 013 ELMER MCMANUS Knee orthosis, locking knee joint(s), positional orthosis, prefabricated, includes fitting and adjustment 012 DUANE GOLDEN Non-Physician Phone Call To Patient/Provider Brief (5-10min) Non-Physician Phone Call To Patient/Provider Brief (5-10min) [phone] ALBARO PASTOR Screening papanicolaou smear; obtaining, preparing and conveyance of cervical or vaginal smear to laboratory 011 LAWANDA KUO Screening papanicolaou smear; obtaining, preparing and conveyance of cervical or vaginal smear to laboratory 011 LAWANDA KUO [employer] Fitting Monofocals (Not For Aphakia) [employer] Fitting Monofocals (Not For Aphakia) [phone] ZEV MOSHER Ophthalmological Prior Patient Start Comprehensive Care Ophthalmological Prior Patient Start Comprehensive Care [id number] ZEV MOSHER Prescription & Fitting Bilateral Corneal Lenses (Not Aphakia Prescription & Fitting Bilateral Corneal Lenses (Not Aphakia [id number] ZEV MOSHER [facility] Determination Of Refractive State Determination Of Refractive State [phone] ZEV MOSHER [facility] Screening papanicolaou smear; obtaining, preparing and conveyance of cervical or vaginal smear to laboratory 007 SHARMILA WALKER [facility] Screening papanicolaou smear; obtaining, preparing and conveyance of cervical or vaginal smear to laboratory 006 SHARMILA WALKER.HGia [facility] Social History Combined list of available smoking, tobacco, and other social history from Department of Defense and Veterans Affairs facilities. Social History Type Response Date Comment Sourc e This section is an empty social history section. [facility] Assessment and Plan Combined list of future care activities from Department of Defense and Veterans Affairs facilities (e.g., assessment and plan notes, appointments, orders, and referrals). Additional future care activities may be listed in the Plan of Care section. Result Assessment and Plan Date Source Assessment and Plan No data available for this section 08/19/2024 Ambulatory Pharmacy Functional Status Combined list of recent functional and cognitive assessments recorded at [employer] [place] Functional [place] Measurement (FIM) Scale: 1 = Total Assistance (Subject = 0% +), 2 = Maximal Assistance (Subject = 25% +), 3 = Moderate Assistance (Subject = 50% +), 4 = Minimal Assistance (Subject = 75% +), 5 = Supervision, 6 = Modified [place] (Device), 7 = Complete [place] (Timely, Safely). Assessment Date/Time Source Assessment Type Assessment Skill Assessment Score Assessment Details No data available for this section
== END 2024-08-19 09:19 | disposition home or self-care (01) ==
LOC: HO.HWS 08:50
PROVIDERS: PCP Nurse Practitioner Family; Visit Provider Advanced Practice Midwife
DX: Z01.419 Encounter for gynecological examination (general) (routine) without abnormal findings (principal)
CPT/HCPCS: 99396; 99459

== ENCOUNTER → 2024-08-19 08:50 | Outpatient (BNVA) | payer OTHER, SELFPAY | PROVIDERS: PCP Nurse Practitioner Family; Visit Provider Advanced Practice Midwife | DX: Z01.419 Encounter for gynecological examination (general) (routine) without abnormal findings (principal) | CPT/HCPCS: 99212; 99459 ==

== ENCOUNTER 2024-09-26 10:52 | Outpatient (REF) | payer OTHER, SELFPAY ==
--- NOTE | ~2024-09-26 | US_ITS ---
EXAMINATION: US PELVIS TRANSABDOMINAL AND TRANSVAGINAL HISTORY: Z30.431 - Encounter for routine checking of intrauterine contraceptive d... COMPARISON: There are no prior studies available for comparison. TECHNIQUE: Transabdominal and endovaginal real-time 2D egan-scale ultrasound was performed. FINDINGS: Uterus: The uterus is normal in size, measuring 9.1 x 4.1 x 5.7 cm. Myometrium has a normal echotexture. No fibroids are identified. Endometrium: The endometrial stripe is obscured by the presence of an IUD which is in expected position. Right ovary: The right ovary measures 2.3 x 1.5 x 2.5 cm. The right ovary is normal in size and echotexture. Left ovary: The left ovary measures 2.6 x 2.6 x 1.8 cm. The left ovary is normal in size and echotexture. Pelvic fluid: none. US/US pelvic and transvaginal IMPRESSION: IUD in expected position in the endometrial cavity. Otherwise unremarkable pelvic ultrasound. Electronically signed by: Neel Angel MD 09/26/2024 11:46 AM EDT
== END 2024-09-26 10:53 | disposition home or self-care (01) ==
LOC: HO.US 10:52
PROVIDERS: PCP Nurse Practitioner Family; Visit Provider Advanced Practice Midwife
DX: Z30.431 Encounter for routine checking of intrauterine contraceptive device (principal)
CPT/HCPCS: 76830; 76856

== ENCOUNTER → 2024-09-26 10:55 | Outpatient (BNV) | payer OTHER, SELFPAY | PROVIDERS: PCP Nurse Practitioner Family; Visit Provider Radiology Diagnostic Radiology | DX: Z30.431 Encounter for routine checking of intrauterine contraceptive device (principal) | CPT/HCPCS: 76830; 76856 ==

== ENCOUNTER 2024-10-29 08:46 | Outpatient (REF) | payer OTHER, SELFPAY ==
--- OUTSIDE RECORDS SUMMARY | 2024-10-29 08:59 | XMS_ITS | Encounter Summary ---
Author Organization [facility] Address [address] [place] [address] Care Team Providers Care Marketing Database Consultant Name Role Phone Unavailable Primary Care Provider Unavailabl e Prior Encounters Date Type Department Care Team Description 05/12/2019 Converted 13x Documents [facility] [address], [address] [place] [phone] <No scans attached> 05/12/2019 Converted CPS Chart Documents [facility] [address], [address] [place] [phone] <No scans attached> 05/12/2019 Converted CPS Chart Documents [facility] [address], [address] [place] [phone] <No scans attached> 05/12/2019 Converted 13x Documents [facility] [address], [address] [place] [phone] <No scans attached> Plan of Treatment Not on file Procedures Procedure Name Priority Date/Time Associated Diagnosis Comments ORTHO CONSULT Routine 04/03/2014 1:00 AM [facility] ORAL HYGIENE INSTRUCTIONS Routine 2013 1:00 AM [facility] TOPICAL APPLICATION OF FLUORIDE VARNISH Routine 03/27/2014 1:00 AM [facility] PROPHYLAXIS - ADULT Routine 03/27/2014 1 :00 AM [facility] COMPREHENSIVE ORAL EVALUATION - NEW OR ESTABLISHED PATIENT Routine 03/25/2014 1:00 AM [facility] PANORAMIC RADIOGRAPHIC IMAGE Routine 03/25/2014 1:00 AM [facility] INTRAORAL - COMPREHENSIVE SERIES OF RADIOGRAPHIC IMAGES Routine 03/25/2014 1:00 AM [facility] INTRAORAL PHOTO Routine 03/25/2014 1:00 AM [facility] INTRAORAL PHOTO Routine 03/25/2014 1:00 AM [facility] INTRAORAL PHOTO Routine 03/25/2014 1:00 AM [facility] INTRAORAL PHOTO Routine 03/25/2014 1:00 AM [facility] 13 MOD COMPOSITE FILLING Routine 014 1:00 AM [facility] 14 DO COMPOSITE FILLING Routine 03/25/20 14 1:00 AM [facility] 15 O COMPOSITE FILLING Routine 4 1:00 AM [facility] Visit Diagnoses Not on file
== END 2024-10-29 08:47 | disposition home or self-care (01) ==
LOC: HO.MAMMO 08:46
PROVIDERS: PCP Nurse Practitioner Family; Visit Provider Nurse Practitioner Family
DX: Z12.31 Encounter for screening mammogram for malignant neoplasm of breast (principal)
CPT/HCPCS: 77063; 77067

== ENCOUNTER → 2024-10-29 09:15 | Outpatient (BNV) | payer OTHER, SELFPAY | PROVIDERS: PCP Nurse Practitioner Family; Visit Provider Internal Medicine | DX: Z12.31 Encounter for screening mammogram for malignant neoplasm of breast (principal) | CPT/HCPCS: 77063; 77067 ==